=== PATIENT | male | born 1965 | race Caucasian/White ===

== ENCOUNTER → 2020-12-18 | Outpatient (CLI) | payer BC | END | disposition home or self-care (01) | LOC: LABWHC1 16:50 | PROVIDERS: ATTEND Family Medicine | DX: U07.1 COVID-19 (principal) | CPT/HCPCS: 87502; U0003; C9803; U0005 ==

== ENCOUNTER 2020-12-20 09:28 | Emergency (ER) | payer BC ==
--- NOTE | 2020-12-20 09:57 | ED ---
General Adult HPI - General Chief complaint: Recheck/Abnormal Lab/Rx Stated complaint: covid+/sent by PCP Time Seen by Provider: 12/20/20 09:38 Source: patient Mode of arrival: ambulatory Limitations: no limitations - History of Present Illness Initial comments: 55-year-old male with a past medical history of hypertension presents to the emergency room for antibody infusion. Patient tested positive for COVID today at [facility]. Patient has had 9-10 days of symptoms. Patient was sent in by primary care for antibody infusion. Patient states he has had congestion and a cough as well as chills. Patient does not have any chest pain or shortness of breath.Patient has no other complaints at this time including shortness of breath, chest pain, abdominal pain, nausea or vomiting, headache, or visual changes. - Related Data Allergies Allergy/AdvReac Type Severity Reaction Status Date / Time codeine Allergy Rash/Hives Verified 12/20/20 09:33 morphine Allergy Rash/Hives Verified 12/20/20 09:33 Review of Systems ROS Statement: Those systems with pertinent positive or pertinent negative responses have been documented in the HPI. ROS Other: All systems not noted in ROS Statement are negative. Past Medical History Past Medical History: No Reported History History of Any Multi-Drug Resistant Organisms: None Reported Past Surgical History: No Surgical Hx Reported Past Psychological History: No Psychological Hx Reported Smoking Status: Never smoker Past Alcohol Use History: Rare Past Drug Use History: Marijuana General Exam Limitations: no limitations General appearance: alert, in no apparent distress Head exam: Present: atraumatic, normocephalic, normal inspection Eye exam: Present: normal appearance, PERRL, EOMI. Absent: scleral icterus, conjunctival injection, periorbital swelling ENT exam: Present: normal exam, mucous membranes moist Neck exam: Present: normal inspection, full ROM. Absent: tenderness, meningismus, lymphadenopathy Respiratory exam: Present: normal lung sounds bilaterally. Absent: respiratory distress, wheezes, rales, rhonchi, stridor Cardiovascular Exam: Present: regular rate, normal rhythm, normal heart sounds. Absent: systolic murmur, diastolic murmur, rubs, gallop, clicks GI/Abdominal exam: Present: soft, normal bowel sounds. Absent: distended, tenderness, guarding, rebound, rigid Course Vital Signs 12/20/20 09:29 Temperature 97.5 F L Pulse Rate 111 H Respiratory 18 Rate Blood Pressure 151/94 O2 Sat by Pulse 97 Oximetry Medical Decision Making - Medical Decision Making Vitals are stable. Patient initially tachycardic which did improve to 101. Lungs are clear. Vitals are stable. Patient does qualify for antibody infusion as he is within 10 days of symptoms and tested positive outpatient. He also is over 55 and his hypertension. I did discuss the risks of infusion including ALLERGIC reaction. He is agreeable to this. Discussed strict return parameters. Disposition Clinical Impression: COVID-19 Disposition: HOME SELF-CARE Condition: Good Instructions (If sedation given, give patient instructions): Coronavirus Disease 2019 (COVID-19) Additional Instructions: Please follow up with primary care in 1-2 days. Return to the ER for any worsening symptoms. Is patient prescribed a controlled substance at d/c from ED?: No Referrals: Jaret Salomon MD [Primary Care Provider] - 1-2 days Time of Disposition: 10:02
[2020-12-20] MEDS ORDERED: BAMLANIVIMAB (EUA) 700 MG, ETESEVIMAB (EUA) 1,400 MG in SODIUM CHLORIDE 0.9% 50 ML IVPB ONE (10:15)
[2020-12-20 12:46] VITALS: BP 140/90; PULSE 96; RESP 17; TEMP 97.6
== END 2020-12-20 12:03 | disposition home or self-care (01) ==
LOC: EC 09:28
DX: U07.1 COVID-19 (principal); I10 Essential (primary) hypertension; F12.90 Cannabis use, unspecified, uncomplicated
CPT/HCPCS: 96374; 99283

== ENCOUNTER 2020-12-22 10:12 | Inpatient (IN) | payer BC ==
[2020-12-22] MEDS ORDERED: SODIUM CHLORIDE 0.9% 500 ML 500 ML IV STA (10:53)
--- NOTE | 2020-12-22 11:13 | ED ---
Weakness HPI - General Chief complaint: Weakness Stated complaint: numbness,weakness Time Seen by Provider: 12/22/20 10:44 Source: patient, EMS Mode of arrival: EMS - History of Present Illness Initial comments: Patient is a 55-year-old male, with history of hypertension, presenting to the emergency department via EMS with complaints of numbness in all 4 extremities after receiving BAM infusion 2 days ago. Patient states he started having cold like symptoms about 5 days ago, had testing done and tested +2 days ago. He states the symptoms were mild cough, mild shortness of breath, fevers and fatigue. He states every day receiving this infusion he started having a little bit of numbness in his left hand where the IV was but then it progressed to his right hand and arm as well. He did call his PCP who recommended increasing his water intake which he did but states throughout this morning he noticed numbness in all 4 was extremities so he called EMS. He states his fevers have been better but he still feels short of breath. Still having some mild nausea, appetite has been low. He denies any chest pain. He denies history of asthma or COPD, he was a former smoker, stopped 10 years ago. He has no further complaints at this time. He is lightly tachycardia upon arrival at 112, 95% on 2 L, hypertensive at 163/105 but he states he did not take his hypertension medication this morning. - Related Data Home Medications Medication Instructions Recorded Confirmed Metoprolol Tartrate [Lopressor] 25 mg PO BID 12/22/20 12/22/20 lisinopriL [Zestril] 20 mg PO BID 12/22/20 12/22/20 Allergies Allergy/AdvReac Type Severity Reaction Status Date / Time codeine Allergy Rash/Hives Verified 12/22/20 12:18 morphine Allergy Rash/Hives Verified 12/22/20 12:18 Review of Systems ROS Statement: Those systems with pertinent positive or pertinent negative responses have been documented in the HPI. ROS Other: All systems not noted in ROS Statement are negative. Past Medical History Past Medical History: Hypertension History of Any Multi-Drug Resistant Organisms: None Reported Past Surgical History: Hernia Repair Additional Past Surgical History / Comment(s): eye surgery Past Psychological History: No Psychological Hx Reported Smoking Status: Never smoker Past Alcohol Use History: Rare Past Drug Use History: Marijuana General Exam - General Exam Comments Initial Comments: GENERAL: Patient is well-developed and well-nourished. Patient is nontoxic and in no acute distress. HEAD: Atraumatic, normocephalic. EYES: Pupils equal round and reactive to light, extraocular movements intact, sclera anicteric, conjunctiva are normal. Eyelids were unremarkable. ENT: TMs normal, nares patent, oropharynx clear without exudates. Moist mucous membranes. NECK: Normal range of motion, supple without lymphadenopathy or JVD. LUNGS: Unlabored respirations. Breath sounds clear to auscultation bilaterally and equal. No wheezes rales or rhonchi. HEART: Tachycardia rate and rhythm without murmurs, rubs or gallops. ABDOMEN: Soft, nontender, normoactive bowel sounds. No guarding, no rebound. No masses appreciated. : Deferred MUSCULOSKELETAL: Normal extremities with adequate strength and normal range of motion, no pitting or edema. No clubbing or cyanosis. NEUROLOGICAL: Patient is alert and oriented x 3. Motor and sensory are also intact. Cranial nerves II through XII grossly intact. Symmetrical smile. Normal speech, normal gait. PSYCH: Normal mood, normal affect. SKIN: Warm, Dry, normal turgor, no rashes or lesions noted. Course Vital Signs 12/22/20 12/22/20 12/22/20 10:16 10:19 10:43 Temperature 98.8 F 98.8 F Pulse Rate 114 H 114 H 115 H Respiratory 16 16 16 Rate Blood Pressure 161/105 161/105 166/105 O2 Sat by Pulse 97 97 95 Oximetry 12/22/20 12/22/20 12/22/20 11:00 12:00 13:00 Temperature Pulse Rate 112 H 105 H 102 H Respiratory 16 20 14 Rate Blood Pressure 163/105 151/95 165/98 O2 Sat by Pulse 95 97 96 Oximetry EKG Findings - EKG Comments: EKG Findings:: Sinus tach, possible lateral infarct, age undetermined, no signs of acute ischemia today. Ventricular rate 108, MI 136, QT 340. Medical Decision Making - Medical Decision Making Patient is a 55-year-old male with history of hypertension, presenting via EMS with complaints of numbness in all 4 extremities after receiving the BM infusion 2 days ago. He is covid positive. Patient arrived tachycardia at 114, 93% on 2 L. his exam is otherwise unremarkable, no acute neuro deficits, strength is equal and bilateral all 4 extremities, no numbness. Labs show a normal white count, electrolytes are stable, kidney function is normal. CRP is 23, dimer did come back elevated at 13.5. CT angio showed no evidence of acute PE, there are scattered peripheral infiltrates. Patient remains tachycardia in the 100s, remains on 3 L at 96%. Patient will be admitted for Covid pneumonia, hypoxia. Patient accepted by Mikael Ojeda NP. Per Mikael, we will consult Dr. Perez for pulmonology. Patient started on IV Decadron. Patient is in agreement with this plan of care. Case discussed with Dr. Poe. - Lab Data Result diagrams: 12/22/20 11:17 12/22/20 11:17 Lab Results 12/22/20 12/22/20 12/22/20 Range/Units 11:17 11:17 11:17 WBC 7.7 (3.8-10.6) k/uL RBC 4.82 (4.30-5.90) m/uL Hgb 15.2 (13.0-17.5) gm/dL Hct 43.4 (39.0-53.0) % MCV 90.1 (80.0-100.0) fL MCH 31.5 (25.0-35.0) pg MCHC 35.0 (31.0-37.0) g/dL RDW 12.8 (11.5-15.5) % Plt Count 494 H (150-450) k/uL MPV 7.3 Neutrophils % 65 % Lymphocytes % 27 % Monocytes % 4 % Eosinophils % 1 % Basophils % 0 % Neutrophils # 5.0 (1.3-7.7) k/uL Lymphocytes # 2.1 (1.0-4.8) k/uL Monocytes # 0.3 (0-1.0) k/uL Eosinophils # 0.1 (0-0.7) k/uL Basophils # 0.0 (0-0.2) k/uL PT 10.0 (9.0-12.0) sec INR 0.9 (<1.2) APTT 20.9 L (22.0-30.0) sec D-Dimer 13.56 H (<0.60) mg/L FEU Sodium 136 L (137-145) mmol/L Potassium 4.6 (3.5-5.1) mmol/L Chloride 108 H (98-107) mmol/L Carbon Dioxide 21 L (22-30) mmol/L Anion Gap 7 mmol/L BUN 16 (9-20) mg/dL Creatinine 0.85 (0.66-1.25) mg/dL Est GFR (CKD-EPI)AfAm >90 (>60 ml/min/1.73 sqM) Est GFR (CKD-EPI)NonAf >90 (>60 ml/min/1.73 sqM) Glucose 123 H (74-99) mg/dL Plasma Lactic Acid Kevin (0.7-2.0) mmol/L Calcium 9.0 (8.4-10.2) mg/dL Magnesium 2.2 (1.6-2.3) mg/dL Total Bilirubin 0.6 (0.2-1.3) mg/dL AST 26 (17-59) U/L ALT 27 (4-49) U/L Alkaline Phosphatase 102 (38-126) U/L Lactate Dehydrogenase 573 (313-618) U/L C-Reactive Protein 23.6 H (<10.0) mg/L Total Protein 6.9 (6.3-8.2) g/dL Albumin 3.8 (3.5-5.0) g/dL 12/22/20 Range/Units 11:17 WBC (3.8-10.6) k/uL RBC (4.30-5.90) m/uL Hgb (13.0-17.5) gm/dL Hct (39.0-53.0) % MCV (80.0-100.0) fL MCH (25.0-35.0) pg MCHC (31.0-37.0) g/dL RDW (11.5-15.5) % Plt Count (150-450) k/uL MPV Neutrophils % % Lymphocytes % % Monocytes % % Eosinophils % % Basophils % % Neutrophils # (1.3-7.7) k/uL Lymphocytes # (1.0-4.8) k/uL Monocytes # (0-1.0) k/uL Eosinophils # (0-0.7) k/uL Basophils # (0-0.2) k/uL PT (9.0-12.0) sec INR (<1.2) APTT (22.0-30.0) sec D-Dimer (<0.60) mg/L FEU Sodium (137-145) mmol/L Potassium (3.5-5.1) mmol/L Chloride (98-107) mmol/L Carbon Dioxide (22-30) mmol/L Anion Gap mmol/L BUN (9-20) mg/dL Creatinine (0.66-1.25) mg/dL Est GFR (CKD-EPI)AfAm (>60 ml/min/1.73 sqM) Est GFR (CKD-EPI)NonAf (>60 ml/min/1.73 sqM) Glucose (74-99) mg/dL Plasma Lactic Acid Kevin 1.6 (0.7-2.0) mmol/L Calcium (8.4-10.2) mg/dL Magnesium (1.6-2.3) mg/dL Total Bilirubin (0.2-1.3) mg/dL AST (17-59) U/L ALT (4-49) U/L Alkaline Phosphatase (38-126) U/L Lactate Dehydrogenase (313-618) U/L C-Reactive Protein (<10.0) mg/L Total Protein (6.3-8.2) g/dL Albumin (3.5-5.0) g/dL Disposition Clinical Impression: Pneumonia due to COVID-19 virus, Hypoxia Disposition: ADMITTED IP TO THIS [facility] Condition: Stable Referrals: Jaret Salomon MD [Primary Care Provider] - 1-2 days Decision Date: 12/22/20 Decision Time: 14:19
--- NOTE | 2020-12-22 11:24 | XR ---
EXAMINATION TYPE: XR chest 1V portable DATE OF EXAM: 12/22/2020 COMPARISON: None INDICATION: Weakness short of breath fever TECHNIQUE: Single frontal view of the chest is obtained. FINDINGS: The heart size is normal. The pulmonary vasculature is normal. There is a subtle infiltrate in the right upper lobe. Mild infiltrate may be at the left base. Findin gs are nonspecific. Atelectasis and pneumonia could be considered. Consider atypical pneumonia. IMPRESSION: 1. Scattered bilateral lung infiltrates are nonspecific. Atypical pneumonia, pneumonia, and atelectas is would be within the differential.
[2020-12-22 11:44] LABS: Basophils % (A) 0 %; Eosinophils # (A) 0.1 k/uL (0-0.7); Eosinophils % (A) 1 %; HCT 43.4 % (39.0-53.0); HGB 15.2 gm/dL (13.0-17.5); Lymphocytes # (A) 2.1 k/uL (1.0-4.8); Lymphocytes % (A) 27 %; MCH 31.5 pg (25.0-35.0); MCV 90.1 fL (80.0-100.0); Mean Platelet Volume 7.3; Monocytes # (A) 0.3 k/uL (0-1.0); Monocytes % (A) 4 %; Neutrophils % (A) 65 %; Platelet Count 494 k/uL (150-450); RBC 4.82 m/uL (4.30-5.90); RDW 12.8 % (11.5-15.5); WBC 7.7 k/uL (3.8-10.6)
[2020-12-22 12:04] LABS: ALT 27 U/L (4-49); AST 26 U/L (17-59); African American GFR (CKD) >90 (>60 ml/min/1.73 sqM); Albumin 3.8 g/dL (3.5-5.0); Alkaline Phosphatase 102 U/L (38-126); Anion Gap 7 mmol/L; Blood Urea Nitrogen 16 mg/dL (9-20); C Reactive Protein 23.6 mg/L (<10.0); Carbon Dioxide 21 mmol/L (22-30); Chloride 108 mmol/L (98-107); Glucose 123 mg/dL (74-99); LDH 573 U/L (313-618); Magnesium 2.2 mg/dL (1.6-2.3); Non-African American GFR(CKD) >90 (>60 ml/min/1.73 sqM); Potassium 4.6 mmol/L (3.5-5.1); Sodium 136 mmol/L (137-145); Total Bilirubin 0.6 mg/dL (0.2-1.3); Total Protein 6.9 g/dL (6.3-8.2)
[2020-12-22 12:45] LABS: INR 0.9 (<1.2)
[2020-12-22 12:47] LABS: D-Dimer 13.56 mg/L FEU (<0.60); Partial Thromboplastin Time 20.9 sec (22.0-30.0)
--- NOTE | 2020-12-22 13:45 | CT ---
CT CHEST FOR PULMONARY EMBOLISM. EXAMINATION TYPE: CT chest angio for PE DATE OF EXAM: 12/22/2020 INDICATION: Elevated dimer, positive covid, dyspnea, weakness CT DLP: 517.8 mGycm, Automated exposure control for dose reduction was used. CONTRAST: Patient injected with 100 mL of Isovue 370. COMPARISON: Chest x-ray 12/22/2020 TECHNIQUE: CT of the chest is performed on a spiral scan at 2 mm thick sections. Study is performed with intravenous contrast timed for evaluation for pulmonary embolism. This will limit additional po rtions of the evaluation. 3-D MIP images reconstructed by the technologist are reviewed on the compu ter in the coronal and sagittal planes. FINDINGS: No persistent filling defects are evident to suggest an acute pulmonary embolism. No mediastinal or hilar adenopathy enlarged by CT criteria is evident. The ascending aorta diameter at the level of the main pulmonary artery is 4.2 cm. The main pulmonary artery diameter at the bifur cation is 2.7 cm. There is a small area of pneumonitis in the periphery of the left upper lung field, series 406 image 42. Scattered areas of pneumonitis and groundglass opacities through the right mid and upper lung fie ld some peripheral infiltrates in the lateral left midlung and posterior right mid lung. A 0.5 cm nodule may be in the posterior left lung. Series 406 image 81. Some emphysematous blebs are evident in the upper lung thompson Limited CT section through the upper abdomen are unremarkable. IMPRESSIONS: 1. No acute pulmonary embolism. 2. Scattered peripheral infiltrates are nonspecific but can be compatible with atypical pneumonia.
[2020-12-22] MEDS ORDERED: ACETAMINOPHEN TAB 325 MG TAB PO PRN (14:15)
[2020-12-22] MEDS ORDERED: IBUPROFEN 400 MG TAB PO PRN (14:15)
[2020-12-22] MEDS ORDERED: NALOXONE 0.4 MG/ML 1 ML VIAL IV PRN (14:15)
[2020-12-22] MEDS ORDERED: ONDANSETRON 4 MG/2 ML VIAL IVP PRN (14:15)
[2020-12-22] MEDS: DEXAMETHASONE SOD PHOSPHATE 10 MG/ML 1 ML VIAL IV SCH (14:57)
[2020-12-22] MEDS: CHOLECALCIFEROL 25 MCG (1000 IU) TABLET PO SCH (16:27)
[2020-12-22] MEDS: ASCORBIC ACID 500 MG TAB PO SCH (16:27)
[2020-12-22] MEDS: ZINC SULFATE 220 MG CAP PO SCH (16:34)
[2020-12-22] MEDS ORDERED: REMDESIVIR 200 MG in SODIUM CHLORIDE 0.9% 250 ML IVPB ONE (17:00)
[2020-12-22] MEDS: ENOXAPARIN 100 MG/ML SYRINGE SQ SCH ×2 (17:38→23:00)
[2020-12-22 17:44] LABS: INR 0.9 (<1.2); Partial Thromboplastin Time 20.4 sec (22.0-30.0); Prothrombin Time 10.1 sec (9.0-12.0)
--- NOTE | 2020-12-22 17:56 | P.CNPUL ---
History of Present Illness Consult date: 12/22/20 Reason for consult: dyspnea, cough, COPD Chief complaint: Numbness in the hands and feet along with shortness of breath History of present illness: This is a 55-year-old male with history of smoking 3 packs per day lately has however has been not smoking, patient came into the hospital due to numbness in all 4 extremity, patient was diagnosed as the cord 19 pneumonia about a week ago with symptoms onset, has been more short of breath lately, patient did present in the ER previously for monoclonal IV antibody therapy after that he started having numbness in his feet and arms came into the hospital for further eval uation and intervention and treatment Review of Systems All systems: negative Past Medical History Past Medical History: Hypertension History of Any Multi-Drug Resistant Organisms: None Reported Past Surgical History: Hernia Repair Additional Past Surgical History / Comment(s): eye surgery Past Psychological History: No Psychological Hx Reported Smoking Status: Never smoker Past Alcohol Use History: Rare Past Drug Use History: Marijuana Medications and Allergies Home Medications Medication Instructions Recorded Confirmed Type Metoprolol Tartrate [Lopressor] 25 mg PO BID 12/22/20 12/22/20 History lisinopriL [Zestril] 20 mg PO BID 12/22/20 12/22/20 History Allergies Allergy/AdvReac Type Severity Reaction Status Date / Time codeine Allergy Rash/Hives Verified 12/22/20 12:18 morphine Allergy Rash/Hives Verified 12/22/20 12:18 Physical Exam Vitals: Vital Signs Temp Pulse Resp BP Pulse Ox 12/22/20 17:00 98 20 158/94 97 12/22/20 16:00 114 H 20 156/95 97 12/22/20 15:00 98 16 153/95 97 12/22/20 14:00 97.9 F 109 H 20 157/92 97 12/22/20 13:00 102 H 14 165/98 96 12/22/20 12:00 105 H 20 151/95 97 12/22/20 11:00 112 H 16 163/105 95 12/22/20 10:43 115 H 16 166/105 95 12/22/20 10:19 98.8 F 114 H 16 161/105 97 12/22/20 10:16 98.8 F 114 H 16 161/105 97 Intake and Output 12/22/20 12/22/20 12/22/20 06:59 14:59 22:59 Other: Weight 102.965 kg - Constitutional General appearance: disheveled, mild distress - EENT Eyes: PERRLA Ears: bilateral: normal - Neck Carotids: bilateral: upstroke normal - Respiratory Respiratory: bilateral: CTA - Cardiovascular Rhythm: regular Heart sounds: normal: S1, S2 - Gastrointestinal General gastrointestinal: normal bowel sounds, soft - Neurologic Neurologic: CNII-XII intact - Musculoskeletal Musculoskeletal: gait normal, generalized weakness, strength equal bilaterally - Psychiatric Psychiatric: A&O x's 3, appropriate affect, intact judgment & insight Results - Laboratory Findings CBC and BMP: 12/22/20 11:17 12/22/20 11:17 PT/INR, D-dimer PT 10.0 sec (9.0-12.0) 12/22/20 11:17 INR 0.9 (<1.2) 12/22/20 11:17 D-Dimer 13.56 mg/L FEU (<0.60) H 12/22/20 11:17 Abnormal lab findings: Abnormal Labs 12/22/20 12/22/20 12/22/20 11:17 11:17 11:17 Plt Count 494 H APTT 20.9 L D-Dimer 13.56 H Sodium 136 L Chloride 108 H Carbon Dioxide 21 L Glucose 123 H Creatine Kinase C-Reactive Protein 23.6 H 12/22/20 16:42 Plt Count APTT D-Dimer Sodium Chloride Carbon Dioxide Glucose Creatine Kinase 39 L C-Reactive Protein - Diagnostic Findings Chest x-ray: report reviewed, image reviewed (Bilateral infiltrate,) CT scan - chest: report reviewed, image reviewed (No acute pulmonary embolism seen bilateral scattered infiltrates consistent with covid 19 pneumonia) Assessment and Plan Assessment: Acute coronary pneumonia Acute hypoxic respiratory failure Bilateral symmetrical numbness of the extremities Hypertension hypertensive cardiovascular disease Likely baseline COPD Plan: IV REM desivir Supplemental oxygen Deep breathing sense incentive spirometry IV Decadron Anticoagulation with Lovenox Recommend neurology evaluation for neuropathy appears to be associated with cold with 19 pneumonia versus monoclonal antibody therapy Further plan of care and recommendation as per clinical response of the patient Time with Patient: Greater than 30
[2020-12-22] MEDS ORDERED: DEXTROSE 5%-0.9% NACL 1,000 ML IV SCH (18:00)
--- NOTE | 2020-12-22 18:23 | P.HPIM ---
History of Present Illness H&P Date: 12/22/20 Chief Complaint: Covid 19 pneumonia 55-year-old male presented to the emergency room with the complaint of numbness and bilateral upper extremities. Patient recently received BAM infusion 2 days ago for Covid 19 infection. Patient has significant medical history of hypertension. Patient states his symptoms began about 5 days agowithin the last 24 hours patient noticed numbness to upper extremities and significant amount of fatigue and mild exertional shortness of breath. Diagnostic testing and imaging results reveal covid- 19 infection. To be started on high-dose Lovenox and IV Decadron, and REMDESIVIR. Patient requiring 2 L of oxygen to keep oxygen saturation above 94%. Pulmonary critical care consulted for recommendations and treatment plan Review of Systems Constitutional: Reports fatigue, Reports fever, Reports malaise, Reports weakness Ears, nose, mouth and throat: Reports sore throat Cardiovascular: Reports dyspnea on exertion, Reports lightheadedness Musculoskeletal: Reports muscle weakness Neurological: Reports numbness, Reports tingling Endocrine: Reports fatigue Past Medical History Past Medical History: Hypertension History of Any Multi-Drug Resistant Organisms: None Reported Past Surgical History: Hernia Repair Additional Past Surgical History / Comment(s): eye surgery Past Psychological History: No Psychological Hx Reported Smoking Status: Never smoker Past Alcohol Use History: Rare Past Drug Use History: Marijuana Medications and Allergies Home Medications and Allergies Comment(s): Medications and ALLERGIES reviewed Home Medications Medication Instructions Recorded Confirmed Type Metoprolol Tartrate [Lopressor] 25 mg PO BID 12/22/20 12/22/20 History lisinopriL [Zestril] 20 mg PO BID 12/22/20 12/22/20 History Allergies Allergy/AdvReac Type Severity Reaction Status Date / Time codeine Allergy Rash/Hives Verified 12/22/20 18:05 morphine Allergy Rash/Hives Verified 12/22/20 18:05 Physical Exam Vitals: Vital Signs Temp Pulse Resp BP Pulse Ox 12/22/20 17:54 98.9 F 12/22/20 17:00 98 20 158/94 97 12/22/20 16:00 114 H 20 156/95 97 12/22/20 15:00 98 16 153/95 97 12/22/20 14:00 97.9 F 109 H 20 157/92 97 12/22/20 13:00 102 H 14 165/98 96 12/22/20 12:00 105 H 20 151/95 97 12/22/20 11:00 112 H 16 163/105 95 12/22/20 10:43 115 H 16 166/105 95 12/22/20 10:19 98.8 F 114 H 16 161/105 97 12/22/20 10:16 98.8 F 114 H 16 161/105 97 Intake and Output 12/22/20 12/22/20 12/22/20 06:59 14:59 22:59 Other: Weight 102.965 kg - Constitutional General appearance: mild distress - EENT Eyes: EOMI, PERRLA Ears: bilateral: normal - Neck Neck: normal ROM Carotids: bilateral: upstroke normal - Respiratory Respiratory: bilateral: diminished (Anterior and posterior lung thompson) - Cardiovascular Sinus tachycardia Heart rate: 108 Rhythm: regular Heart sounds: normal: S1, S2 radial pulse Peripheral Pulses: bilateral: Normal dorsalis pedis Peripheral Pulses: bilateral: Normal - Gastrointestinal General gastrointestinal: normal bowel sounds - Integumentary Integumentary: decreased turgor - Neurologic Neurologic: CNII-XII intact - Musculoskeletal Musculoskeletal: generalized weakness - Psychiatric Psychiatric: A&O x's 3, appropriate affect, intact judgment & insight Results CBC & Chem 7: 12/22/20 11:17 12/22/20 11:17 Labs: Abnormal Lab Results - Last 24 Hours (Table) 12/22/20 12/22/20 12/22/20 Range/Units 11:17 11:17 11:17 Plt Count 494 H (150-450) k/uL APTT 20.9 L (22.0-30.0) sec Fibrinogen (200-500) mg/dL D-Dimer 13.56 H (<0.60) mg/L FEU Sodium 136 L (137-145) mmol/L Chloride 108 H (98-107) mmol/L Carbon Dioxide 21 L (22-30) mmol/L Glucose 123 H (74-99) mg/dL Creatine Kinase (55-170) U/L C-Reactive Protein 23.6 H (<10.0) mg/L 12/22/20 12/22/20 Range/Units 16:42 16:42 Plt Count (150-450) k/uL APTT 20.4 L (22.0-30.0) sec Fibrinogen 560 H (200-500) mg/dL D-Dimer (<0.60) mg/L FEU Sodium (137-145) mmol/L Chloride (98-107) mmol/L Carbon Dioxide (22-30) mmol/L Glucose (74-99) mg/dL Creatine Kinase 39 L (55-170) U/L C-Reactive Protein (<10.0) mg/L Chest x-ray: report reviewed CT scan - chest: report reviewed Thrombosis Risk Factor Assmnt - Choose All That Apply Each Factor Represents 1 point: Age 41-60 years, Obesity (BMI >25) Thrombosis Risk Factor Assessment Total Risk Factor Score: 2 Thrombosis Risk Factor Assessment Level: Low Risk Assessment and Plan Assessment: Acute covid-19 pneumonia Acute hypoxic respiratory failure Bilateral symmetrical numbness of upper extremities Hypertension Cardiovascular disease Possible COPDformer smoker Current illicit drug use of marijuana Full code Plan: Covid 19 [id number] Lovenox and IV Decadron, and REMDESIVIR- consultation with pulmonary critical care for recommendations and treatment plan Hypertension continue home medications Acute hypoxic rest or failuresupplemental oxygen to keep saturations greater than 94 present Continue home medications Further recommendations to come based on patient's clinical condition Time with Patient: Greater than 30
[2020-12-22] MEDS: lisinopriL 20 MG TAB PO SCH (21:13)
[2020-12-22] MEDS: METOPROLOL TARTRATE 25 MG TAB PO SCH (21:13)
[2020-12-23] MEDS: ZINC SULFATE 220 MG CAP PO SCH (08:12)
[2020-12-23] MEDS: lisinopriL 20 MG TAB PO SCH ×2 (08:13→20:25)
[2020-12-23] MEDS: METOPROLOL TARTRATE 25 MG TAB PO SCH ×2 (08:13→20:25)
[2020-12-23] MEDS: CHOLECALCIFEROL 25 MCG (1000 IU) TABLET PO SCH (08:13)
[2020-12-23] MEDS: ASCORBIC ACID 500 MG TAB PO SCH (08:13)
[2020-12-23] MEDS: DEXAMETHASONE SOD PHOSPHATE 10 MG/ML 1 ML VIAL IV SCH (08:13)
[2020-12-23 09:17] LABS: D-Dimer 6.64 mg/L FEU (<0.60); Partial Thromboplastin Time 23.7 sec (22.0-30.0); Prothrombin Time 10.5 sec (9.0-12.0)
[2020-12-23 09:44] LABS: Ferritin 365.7 ng/mL (22.0-322.0)
[2020-12-23] MEDS: ENOXAPARIN 100 MG/ML SYRINGE SQ SCH (11:18)
[2020-12-23 11:49] LABS: Basophils # (A) 0.02 X 10*3/uL (0.00-0.10); Basophils % (A) 0.2 %; Eosinophils # (A) 0.01 X 10*3/uL (0.04-0.35); Eosinophils % (A) 0.1 %; HCT 43.8 % (39.6-50.0); HGB 14.4 g/dL (13.0-17.0); Lymphocytes # (A) 2.62 X 10*3/uL (0.90-5.00); Lymphocytes % (A) 27.7 %; MCHC 32.9 g/dL (32.0-37.0); MCV 91.3 fL (80.0-97.0); Mean Platelet Volume 9.7 fL (9.5-12.2); Monocytes # (A) 0.48 X 10*3/uL (0.20-1.00); Monocytes % (A) 5.1 %; Neutrophils # (A) 6.29 X 10*3/uL (1.80-7.70); Neutrophils % (A) 66.5 %; Platelet Count 531 X 10*3/uL (140-440); WBC 9.46 X 10*3/uL (4.50-10.00)
[2020-12-23 12:02] LABS: African American GFR (CKD) 114.9 (60.0-200.0); Albumin 4.4 g/dL (3.80-4.90); Anion Gap 8.7 mmol/L (4.00-12.00); BUN/Creat Ratio 18.75 Ratio (12.00-20.00); C Reactive Protein 1.4 mg/dL (0.0-0.8); Calcium 9.2 mg/dL (8.7-10.3); Carbon Dioxide 22.3 mmol/L (21.6-31.8); Globulin 2.2 g/dL (1.6-3.3); Magnesium 2.2 mg/dL (1.5-2.4); Non-African American GFR(CKD) 99.2 (60.0-200.0); Potassium 4.5 mmol/L (3.5-5.5); Total Bilirubin 0.5 mg/dL (0.3-1.2); Total Protein 6.6 g/dL (6.2-8.2)
[2020-12-23 12:11] LABS: Ferritin 371.3 ng/mL (22.0-322.0)
[2020-12-23 15:36] LABS: Potassium 4.5 mmol/L (3.5-5.1)
[2020-12-23 15:37] LABS: ALT 33 U/L (4-49); AST 32 U/L (17-59); African American GFR (CKD) >90 (>60 ml/min/1.73 sqM); Albumin 3.9 g/dL (3.5-5.0); Albumin/Globulin Ratio 1.3; Alkaline Phosphatase 100 U/L (38-126); Anion Gap 7 mmol/L; Blood Urea Nitrogen 18 mg/dL (9-20); Calcium 9.4 mg/dL (8.4-10.2); Carbon Dioxide 23 mmol/L (22-30); Chloride 107 mmol/L (98-107); Globulin 3.1 g/dL; Glucose 153 mg/dL (74-99); Non-African American GFR(CKD) >90 (>60 ml/min/1.73 sqM); Sodium 137 mmol/L (137-145); Total Bilirubin 0.5 mg/dL (0.2-1.3)
--- NOTE | 2020-12-23 15:42 | CT ---
EXAM: CT brain wo con CLINICAL HISTORY: Acute stroke. COMPARISON: None TECHNIQUE: Contiguous axial noncontrast images of the brain were obtained. Coronal and sagittal refor mats were generated and reviewed. Automated dose control was used for this exam. FINDINGS: There is no evidence for intracranial hemorrhage, mass effect or midline shift. The white matter is g rossly preserved. Ventricular size and configuration is within normal limits for degree of parenchymal volume. The paranasal sinuses are clear. The mastoid air cells are clear. No evidence for calvarial fracture. IMPRESSION: No acute intracranial abnormality.
--- NOTE | 2020-12-23 15:51 | P.PN ---
Subjective Progress Note Date: 12/23/20 Principal diagnosis: Acute covid 19 pneumonia Acute hypoxic respiratory failure symmetric neuropathy Bilateral symmetrical numbness of the extremities Hypertension hypertensive cardiovascular disease Likely baseline COPD 12/23/2020, patient seen eval examined during the rounds labs reviewed medications reviewed care plan discussed, shortness of breath still there intermittent cough is present neurology is evaluating this patient suspecting Guillain-Mendez syndrome patients to get a spinal tap, however will caution attempt due to being on Lovenox need to stop 12 hour before, patient received a dose of IV REMdesivir 200 mg yesterday we'll continue it 100 mg IV for 4 more days This is a 55-year-old male with history of smoking 3 packs per day lately has however has been not smoking, patient came into the hospital due to numbness in all 4 extremity, patient was diagnosed as the cord 19 pneumonia about a week ago with symptoms onset, has been more short of breath lately, patient did present in the ER previously for monoclonal IV antibody therapy after that he started having numbness in his feet and arms came into the hospital for further evaluation and intervention and treatment Objective - Vital Signs Vital signs: Vital Signs Temp 97.6 F 12/23/20 14:00 Pulse 120 H 12/23/20 14:00 Resp 22 12/23/20 14:00 BP 178/92 12/23/20 14:00 Pulse Ox 94 L 12/23/20 14:00 Intake & Output 12/22/20 12/23/20 12/23/20 18:59 06:59 18:59 Intake Total 260 Output Total 800 Balance -800 260 Weight 102.965 kg Intake: Oral 260 Output: Urine 800 Other: # Voids 4 - Exam - Constitutional General appearance: disheveled, mild distress - EENT Eyes: PERRLA Ears: bilateral: normal - Neck Carotids: bilateral: upstroke normal - Respiratory Respiratory: bilateral: CTA - Cardiovascular Rhythm: regular Heart sounds: normal: S1, S2 - Gastrointestinal General gastrointestinal: normal bowel sounds, soft - Neurologic Neurologic: CNII-XII intact - Musculoskeletal Musculoskeletal: gait normal, generalized weakness, strength equal bilaterally - Psychiatric Psychiatric: A&O x's 3, appropriate affect, intact judgment & insight - Labs CBC & Chem 7: 12/23/20 08:00 12/23/20 15:02 Labs: Abnormal Lab Results - Last 24 Hours (Table) 12/22/20 12/22/20 12/23/20 Range/Units 16:42 16:42 08:00 Plt Count 531 H (140-440) X 10*3/uL Eosinophils # 0.01 L (0.04-0.35) X 10*3/uL APTT 20.4 L (22.0-30.0) sec Fibrinogen 560 H (200-500) mg/dL D-Dimer (<0.60) mg/L FEU Glucose (70-110) mg/dL Ferritin 365.7 H (22.0-322.0) ng/mL Creatine Kinase 39 L (55-170) U/L C-Reactive Protein (0.0-0.8) mg/dL 12/23/20 12/23/20 12/23/20 Range/Units 08:00 08:00 15:02 Plt Count (140-440) X 10*3/uL Eosinophils # (0.04-0.35) X 10*3/uL APTT (22.0-30.0) sec Fibrinogen 507 H (200-500) mg/dL D-Dimer 6.64 H (<0.60) mg/L FEU Glucose 128 H 153 H (70-110) mg/dL Ferritin 371.3 H (22.0-322.0) ng/mL Creatine Kinase (55-170) U/L C-Reactive Protein 1.4 H (0.0-0.8) mg/dL Microbiology - Last 24 Hours (Table) 12/22/20 11:17 Blood Culture - Preliminary Blood No Growth after 24 hours 12/22/20 11:17 Blood Culture - Preliminary Blood No Growth after 24 hours Assessment and Plan Assessment: Acute cvid 19 pneumonia Acute hypoxic respiratory failure acute peripheral neuropathy Bilateral symmetrical numbness of the extremities Hypertension hypertensive cardiovascular disease Likely baseline COPD Plan: IV REM desivir Supplemental oxygen Deep breathing sense incentive spirometry IV Decadron Anticoagulation with Lovenox neurology evaluation in progress for neuropathy appears to be associated with cold with 19 pneumonia versus monoclonal antibody therapy suspect AIDP Further plan of care and recommendation as per clinical response of the patient Time with Patient: Greater than 30
--- NOTE | 2020-12-23 16:23 | PN ---
PROGRESS NOTE DATE OF SERVICE: 12/23/2020. HISTORY OF PRESENT ILLNESS: This 55-year-old gentleman who was admitted with acute COVID-19 pneumonia also was symptomatic since about December 10. The patient subsequently had Covid test done on December 18 as an outpatient which is positive. On December 20, Friday, the patient came to the ER around 10 o'clock and patient had infusion of BAM and combination fusion finished at 12 o'clock. The patient went home. Patient is slightly numb in the left hand before he left and subsequently within a few hours the patient developed numbness of the hand which was rapidly progressive and the patient came to [facility] yesterday on the and was admitted. The patient came to [facility] on 12/22 and the patient admitted for evaluation and treatment. There is no history of fever, rigors. No headache, loss of consciousness, seizures. The inflammatory markers of Covid 19 are elevated at this time. Neurology and Infectious Disease evaluation in progress. PAST MEDICAL HISTORY: Reviewed. REVIEW OF SYSTEMS: CARDIOVASCULAR SYSTEM: No angina. RESPIRATION: As mentioned earlier. GI: As mentioned earlier. : No dysuria. NERVOUS SYSTEM: As mentioned. CURRENT MEDICATIONS: Reviewed and include: Tylenol, vitamin C, vitamin D3, Decadron, and Lovenox, Motrin, Zestril, doses reviewed. PHYSICAL EXAMINATION: Alert and oriented times three. Pulse 120 and regular. Blood pressure 178/90, respiration 22, temperature 97.2, pulse ox 94% on 3 L. HEENT: Conjunctivae normal. NECK: No JVD. CARDIOVASCULAR: S1, S2. RESPIRATION: Breath sounds diminished in the bases. Scattered rhonchi and crackles. ABDOMEN: Soft, nontender. LEGS are no edema. No swelling. NERVOUS SYSTEM: Diffusely weak, significant weakness grade 3/4 in the proximal muscles and grade 4 in the distal muscles. Sensory abnormality about 60% in the upper limbs and in the lower limbs. The trunk is normal. Otherwise, the tongue sensations are normal. Reflexes are diminished. Gait is ataxic. LYMPHATICS: No lymph nodes palpable in the neck, axillae or groin. JOINTS: No active deforming arthropathy. LABS: At this time shows: WBC 9.4 and hemoglobin 14.4, and INR is 1. D-dimer 6.64. C- reactive protein is 1.4. ASSESSMENT: 1. Acute COVID-19 infection, with bilateral Covid 19 pneumonia, right more the left interstitial pneumonia. 2. Significant weakness and numbness, possibly demyelinating polyneuropathy or Guillain Adkins syndrome possibly secondary to Covid or BAM. 3. Hypertension. 4. History of THC. 5. Elevated platelet counts. 6. Elevated D-dimer without evidence of pulmonary embolism. 7. Hyponatremia. 8. Elevated random glucose. 9. Elevated ferritin. 10.Elevated CRP. 11.FULL CODE. 12.Obesity with body mass of 31.7. RECOMMENDATIONS AND DISCUSSION: This 55-year-old gentleman who presented with multiple complex medical issues, we will monitor the patient closely. Continue the current medications, management and symptomatic treatment. Continue with Lovenox. Continue the vitamin supplements. Otherwise, I would recommend a neurology evaluation and Infectious Disease evaluation. Neurology has seen the patient. Discussed with Neurology, Dr. Hawk. Recommended lumbar puncture and possible IVIG infusion. Prognosis extremely guarded and I would also recommend a 2D echo with Doppler and we will monitor the patient. Neuro checks. Transfer to telemetry. There are no beds available in any of the tertiary care centers. Prognosis extremely guarded because of multiple complex medical issues. Further recommendations to follow. MMODL / IJN: [id number] / SILVIA
[2020-12-23] MEDS: REMDESIVIR 100 MG in SODIUM CHLORIDE 0.9% 250 ML IVPB SCH (17:42)
--- NOTE | 2020-12-23 17:49 | P.CNNES ---
History of Present Illness Consult date: 12/23/20 History of Present Illness: The patient is a pleasant 55-year-old right-handed male who is seen in neurologic consultation on December 23, 2020, via teleneurology. The patient reports that he was diagnosed with Covid 19 on Sunday, December 20, 2020. The same day, he received an infusion of Bamlanivimab,a monoclonal antibody used to treat early, non-hospitalized, covid positive pts. The patient reports that on the day of the infusion, he began to experience numbness in his left hand. This was the hand in which the IV was placed. Patient reports that the numbness then began to involve his right hand. Patient also reports experiencing soreness in his knees, which she feels was associated with the infusion. At the next day apparently the patient felt severe weakness in his legs. He says he "went to the floor". His legs were weak and numb. Patient reports that the numbness in his legs is from his feet to his hips. Patient denies difficulty with urination. He does reports that he has not had a bowel movement since he has been admitted to the hospital. The patient denies headache. He does report loss of taste sensation. He does not have a loss of smell. Patient does feel as if his right side is slightly worse than the left. Regarding his upper extremities, the patient feels as if his numbness is from his hands to his elbows. The patient denies changes in vision. There is no difficulty with swallowing. No excessive difficulty breathing. The patient does have a cough, associated with his pneumonia. Past Medical History Past Medical History: Hypertension History of Any Multi-Drug Resistant Organisms: None Reported Past Surgical History: Hernia Repair Additional Past Surgical History / Comment(s): eye surgery Past Psychological History: No Psychological Hx Reported Smoking Status: Never smoker Past Alcohol Use History: Rare Past Drug Use History: Marijuana - Past Family History Mother Family Medical History: Cancer, COPD Father Family Medical History: Myocardial Infarction (MD) Medications and Allergies Home Medications Medication Instructions Recorded Confirmed Type Metoprolol Tartrate [Lopressor] 25 mg PO BID 12/22/20 12/22/20 History lisinopriL [Zestril] 20 mg PO BID 12/22/20 12/22/20 History Allergies Allergy/AdvReac Type Severity Reaction Status Date / Time codeine Allergy Rash/Hives Verified 12/22/20 18:05 morphine Allergy Rash/Hives Verified 12/22/20 18:05 Physical Examination - Vital Signs Vital Signs: Vital Signs Temp Pulse Pulse Resp BP BP Pulse Ox 12/23/20 10:30 97.5 F L 87 18 177/91 97 12/23/20 08:02 99 20 147/77 95 12/23/20 05:35 98.0 F 96 19 176/91 96 12/23/20 01:58 97.8 F 92 20 177/93 97 12/22/20 21:58 97.7 F 88 145/87 97 12/22/20 20:00 88 20 12/22/20 17:54 98.9 F 12/22/20 17:00 98 20 158/94 97 12/22/20 16:00 114 H 20 156/95 97 12/22/20 15:00 98 16 153/95 97 Intake and Output 12/22/20 12/23/20 12/23/20 22:59 06:59 14:59 Intake Total 260 Output Total 400 400 Balance -400 -400 260 Intake: Oral 260 Output: Urine 400 400 Other: # Voids 4 Weight 102.965 kg Gen.: The patient is reclining in the bed. He is well-nourished, well-developed and in no acute distress. He is wearing oxygen via nasal cannula. HEENT: Head is atraumatic, normocephalic. Fundus not visualized. There is no scleral icterus. Mucous membranes are moist. Neck: Supple, without carotid bruits. Neck strength is 5/5. Heart: Regular rate and rhythm Trunk: There is decrease in core strength, the patient has difficulty changing positions in the bed. Extremities: Without edema Neurological examination Mental status: The patient is awake, alert and oriented 3. His speech is clear. There is no dysarthria or aphasia. Cranial nerves: Pupils are equal, round and reactive to light. Visual thompson are full to confrontation. Extraocular movements are intact. There is no nys tagmus. Facial sensation is intact. There is no facial asymmetry. Hearing is grossly intact. Uvula and palate are midline. Shoulder shrug is symmetric. Tongue protrudes midline. 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 Biceps strength 4/5. Deltoids and triceps 3/5. Intrinsic hand muscles 1/5. Right hip flexor 2-3/5. Left hip flexor 3/5. Right quadriceps 2-3/5. Left quadriceps 3-/5. Bilateral hip Adductors and abductors 4/5. Left ankle plantar flexor 3+/5. Right plantar flexor 3/5. Bi lateral ankle dorsiflexors 2/5. Sensation: There is dysesthesia to light touch of the lower extremities. There is decreased pinprick distally in the bilateral lower extremities. Deep tendon reflexes: Absent throughout. Plantar responses are mute Coordination: Finger to nose and [id number] testing are intact Results - Laboratory Findings CBC and BMP: 12/23/20 08:00 12/23/20 15:02 Abnormal Lab Findings: Abnormal Labs 12/22/20 12/22/20 12/22/20 11:17 11:17 11:17 Plt Count 494 H Eosinophils # APTT 20.9 L Fibrinogen D-Dimer 13.56 H Sodium 136 L Chloride 108 H Carbon Dioxide 21 L Glucose 123 H Ferritin Creatine Kinase C-Reactive Protein 23.6 H 12/22/20 12/22/20 12/23/20 16:42 16:42 08:00 Plt Count 531 H Eosinophils # 0.01 L APTT 20.4 L Fibrinogen 560 H D-Dimer Sodium Chloride Carbon Dioxide Glucose Ferritin 365.7 H Creatine Kinase 39 L C-Reactive Protein 12/23/20 12/23/20 08:00 08:00 Plt Count Eosinophils # APTT Fibrinogen 507 H D-Dimer 6.64 H Sodium Chloride Carbon Dioxide Glucose 128 H Ferritin 371.3 H Creatine Kinase C-Reactive Protein 1.4 H Assessment and Plan Assessment: 1. 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 Stat lumbar puncture: check protein, glucose, cell count, Gram stain, culture 2. Following lumbar puncture will begin IV IgG daily 5 days 3. Physical therapy consultation Time with Patient: Greater than 30 (spent 40 minutes with patient via teleneurology)
--- NOTE | 2020-12-23 18:35 | US ---
EXAMINATION TYPE: US venous doppler duplex LE BI DATE OF EXAM: 12/23/2020 4:05 PM COMPARISON: NONE CLINICAL HISTORY: dvt. COVID SIDE PERFORMED: bilateral TECHNIQUE: The lower extremity deep venous system is examined utilizing real time linear array sonog marilu with graded compression, doppler sonography and color-flow sonography. VESSELS IMAGED: Common Femoral Vein Deep Femoral Vein Greater Saphenous Vein * Femoral Vein Popliteal Vein Small Saphenous Vein * Proximal Calf Veins (* superficial vessels) Right Leg: no evidence of DVT Left Leg: no evidence of DVT IMPRESSION: No evidence of bilateral lower extremity DVT.
[2020-12-24 00:46] LABS: Partial Thromboplastin Time 23.4 sec (22.0-30.0); Prothrombin Time 10.6 sec (9.0-12.0)
--- NOTE | 2020-12-24 06:29 | CONS ---
CONSULTATION DATE OF SERVICE: 12/23/2020 REASON FOR CONSULTATION: COVID-19 infection. HISTORY OF PRESENT ILLNESS: The patient is a 55-year-old male, currently still having symptoms mostly of URI, currently more of a head cold about 5-6 days before presentation to hospital. The patient was evaluated at [facility] on the 20 December 2020. The patient was diagnosed with acute COVID-19 infection. The patient has received monoclonal antibodies and subsequently discharged home. The patient mentioned he started having some numbness and tingling in his left arm where the patient did have the IV. The next day he noted right hand had subsequently some numbness tenderness lower extremity and some weakness in the legs. The patient mentions it is hard for him to stand on his feet. Denies having any fall. Has been complaining of numbness. Denies having any bowel or bladder problems. With these symptoms, the patient was brought back to the hospital. The patient on presentation to the hospital was afebrile. The patient has been saturating about 97% on 3 L, oxygen saturations on room air have not been documented in the chart. The patient did have a normal white count with no lymphopenia. D-dimer was 13.56. WBC 6.64. Creatinine is normal. Liver enzymes are normal. CRP of 23.3 repeat is 1.4. Procalcitonin 0.06. The patient did have a chest x- ray followed by CT angiogram of the chest that shows negative for PE, did show scattered peripheral infiltrates, possible compatible with atypical pneumonia. The patient has been admitted to the hospital. Infectious Disease was consulted for further management. Patient has already been evaluated by Neurology with concern for possible Guillain-Foley syndrome and plan is for an LP followed by IG infusion. REVIEW OF SYSTEMS: Positive points have been mentioned in HPI. Rest of the systems are negative. PAST MEDICAL HISTORY: Hypertension. PAST SURGICAL HISTORY: Hernia repair. Eye surgery. SOCIAL HISTORY: No history of smoking. Rarely drinks. Admits to marijuana use. FAMILY HISTORY: No pertinent findings noticed. ALLERGIES: Allergies to CODEINE and MORPHINE. MEDICATIONS: The patient is currently on Tylenol, vitamin C, vitamin D3, Decadron, Motrin, Zestril, Lopressor, Narcan, Zofran, remdesivir, zinc sulfate. PHYSICAL EXAMINATION: VITAL SIGNS: Blood pressure 157/81 with a pulse of 87, temperature 98.4, he is 97% on 3 L nasal cannula. GENERAL DESCRIPTION: Patient is a middle-aged male lying in bed in no distress. No tachypnea or accessory muscles of respiration use. HEENT: Examination shows no pallor or scleral icterus. Oral mucous membrane is dry. NECK: Trachea central, no thyromegaly. LUNGS: Unlabored breathing, coarse breath sounds bilaterally. No wheeze. HEART: S1-S2, regular rate and rhythm. ABDOMEN: Soft, no tenderness. No guarding or rigidity. EXTREMITIES: No edema of the feet. SKIN: No rash or mass palpable. NEUROLOGICAL: Patient is awake, alert, oriented times three. Weakness to the lower extremities. LABS: Hemoglobin 14.4, white count 9.46, d-dimer down to 6.64, BUN of 15, 0.77, CPR is down to 1.4. Chest x-ray report as mentioned above. DIAGNOSTIC IMPRESSION: Patient admitted to the hospital predominantly with numbness and weakness in the hand as well as lower extremity with concern for possible Guillain-Foley related to COVID infection versus to his monoclonal antibodies. This patient with underlying COVID infectious symptoms that started about 5-6 days ago, per history. PLAN: 1. Await for the LP to be completed in the morning and possible infusion of . 2. Monitor his neurologic status closely. 3. The patient will be started on remdesivir, along with dexamethasone, Lovenox, zinc and ascorbic acid. 4. We will follow on clinical condition and investigations to further adjust medication if needed. Thank you for this consultation. Will follow this patient along with you. MMODL / IJN: [id number] /
[2020-12-24 08:10] LABS: Cholesterol 152 mg/dL (<200); HDL Cholesterol 34 mg/dL (40-60); LDL Cholesterol,Calculated 101 mg/dL (0-99); Triglycerides 86 mg/dL (<150)
[2020-12-24] MEDS: lisinopriL 20 MG TAB PO SCH ×2 (08:31→21:12)
[2020-12-24] MEDS: CHOLECALCIFEROL 25 MCG (1000 IU) TABLET PO SCH (08:31)
[2020-12-24] MEDS: DEXAMETHASONE SOD PHOSPHATE 10 MG/ML 1 ML VIAL IV SCH (08:31)
[2020-12-24] MEDS: ASCORBIC ACID 500 MG TAB PO SCH (08:32)
[2020-12-24] MEDS: METOPROLOL TARTRATE 25 MG TAB PO SCH ×2 (08:32→21:12)
[2020-12-24] MEDS: ZINC SULFATE 220 MG CAP PO SCH (08:32)
[2020-12-24 09:56] LABS: Basophils # (A) 0.02 X 10*3/uL (0.00-0.10); Basophils % (A) 0.2 %; Eosinophils # (A) 0.01 X 10*3/uL (0.04-0.35); Eosinophils % (A) 0.1 %; HCT 43.6 % (39.6-50.0); HGB 14.7 g/dL (13.0-17.0); Lymphocytes % (A) 30.8 %; MCH 31.1 pg (27.0-32.0); MCHC 33.7 g/dL (32.0-37.0); MCV 92.2 fL (80.0-97.0); Mean Platelet Volume 9.8 fL (9.5-12.2); Monocytes # (A) 0.77 X 10*3/uL (0.20-1.00); Monocytes % (A) 7.2 %; Neutrophils # (A) 6.56 X 10*3/uL (1.80-7.70); Neutrophils % (A) 61.3 %; Platelet Count 520 X 10*3/uL (140-440); RBC 4.73 X 10*6/uL (4.40-5.60); RDW 13.2 % (11.5-14.5)
--- NOTE | 2020-12-24 11:22 | P.PN ---
Progress Note - Text Progress Note Date: 12/24/20 (1111) 55-year-old male for lumbar puncture. Ordered for alterations in sensorium. Coagulopathies: Platelets 531, INR 1.0, PTT 23.4, creatinine 0.77. Patient had been receiving Lovenox 100 mg every 12 hours which his treatment dose. Therefore we had wait 24 hours from the last dose which was around 12/23/2020 at 11:11 AM. Medications:Nothing significant. Consent obtained and confirmed . Timeout performed Sterile protocol was used throughout procedure. L3 4 was identified and patient sitting off edge of bed. Chlorhexidine 2 was used to clean the patient's back. Lidocaine 1% 3 mL was used as local and was infiltrated. Spinal needle 22- gauge 3-1/2 inches was used in one attempt. CSF was obtained. No heme. Specimens collected 4-2 mL each. Needle was withdrawn and Band-Aid applied. Patient tolerated procedure well without complication. Stable for transfer to floor.
[2020-12-24 12:01] LABS: Glucose,CSF 62 mg/dL (40-70); Total Protein,CSF 83 mg/dL (12-60)
[2020-12-24 12:12] LABS: Appearance,CSF Clear; CSF Tube Number 4; Nucleated Cells, CSF 5 u/L (0-5); Red Blood Cell,CSF 1 u/L (0-10)
[2020-12-24 12:18] LABS: Diff, Total Cells Cnt, CSF 100; Mononuclear WBC,CSF 100 %
--- NOTE | 2020-12-24 14:20 | P.PN ---
Subjective Progress Note Date: 12/24/20 Principal diagnosis: Acute covid 19 pneumonia Acute hypoxic respiratory failure symmetric neuropathy Bilateral symmetrical numbness of the extremities Hypertension hypertensive cardiovascular disease Likely baseline COPD 12/24/2020, patient seen eval examined during the rounds status 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, patient is still have numbness in the extremities, overall remains stable however shortness of breath stable, patient is on therapy for Coreg 19 pneumonia along with supplemental oxygen, preliminary results of the spinal tap his bag patient has elevated total protein of 83 in the CSF, duplex ultrasound of the lower extremity negative for DVT, 12/23/2020, patient seen eval examined during the rounds labs reviewed medications reviewed care plan discussed, shortness of breath still there intermittent cough is present neurology is evaluating this patient suspecting Guillain-Mendez syndrome patients to get a spinal tap, however will caution attempt due to being on Lovenox need to stop 12 hour before, patient received a dose of IV REMdesivir 200 mg yesterday we'll continue it 100 mg IV for 4 more days This is a 55-year-old male with history of smoking 3 packs per day lately has however has been not smoking, patient came into the hospital due to numbness in all 4 extremity, patient was diagnosed as the cord 19 pneumonia about a week ago with symptoms onset, has been more short of breath lately, patient did present in the ER previously for monoclonal IV antibody therapy after that he started having numbness in his feet and arms came into the hospital for further evaluation and intervention and treatment Objective - Vital Signs Vital signs: Vital Signs Temp 98.3 F 12/24/20 13:48 Pulse 88 12/24/20 13:48 Resp 19 12/24/20 13:48 BP 128/84 12/24/20 13:48 Pulse Ox 97 12/24/20 13:48 Intake & Output 12/23/20 12/24/20 12/24/20 18:59 06:59 18:59 Intake Total 260 Output Total 2 775 Balance 258 -775 Intake: Oral 260 Output: Urine 2 775 - Exam - Constitutional General appearance: disheveled, mild distress - EENT Eyes: PERRLA Ears: bilateral: normal - Neck Carotids: bilateral: upstroke normal - Respiratory Respiratory: bilateral: CTA - Cardiovascular Rhythm: regular Heart sounds: normal: S1, S2 - Gastrointestinal General gastrointestinal: normal bowel sounds, soft - Neurologic Neurologic: CNII-XII intact - Musculoskeletal Musculoskeletal: gait normal, generalized weakness, strength equal bilaterally - Psychiatric Psychiatric: A&O x's 3, appropriate affect, intact judgment & insight - Labs CBC & Chem 7: 12/24/20 06:08 12/23/20 15:02 Labs: Abnormal Lab Results - Last 24 Hours (Table) 12/23/20 12/23/20 12/24/20 Range/Units 15:02 15:02 06:08 WBC 10.70 H (4.50-10.00) X 10*3/uL Plt Count 520 H (140-440) X 10*3/uL Eosinophils # 0.01 L (0.04-0.35) X 10*3/uL ESR 64 H (0-15) mm/hr D-Dimer (<0.60) mg/L FEU Glucose 153 H (74-99) mg/dL LDL Cholesterol, Calc (0-99) mg/dL HDL Cholesterol (40-60) mg/dL CSF Total Protein (12-60) mg/dL 12/24/20 12/24/20 12/24/20 Range/Units 06:08 06:08 11:18 WBC (4.50-10.00) X 10*3/uL Plt Count (140-440) X 10*3/uL Eosinophils # (0.04-0.35) X 10*3/uL ESR (0-15) mm/hr D-Dimer 1.44 H (<0.60) mg/L FEU Glucose (74-99) mg/dL LDL Cholesterol, Calc 101 H (0-99) mg/dL HDL Cholesterol 34 L (40-60) mg/dL CSF Total Protein 83 H (12-60) mg/dL Microbiology - Last 24 Hours (Table) 12/22/20 11:17 Blood Culture - Preliminary Blood No Growth after 48 hours 12/22/20 11:17 Blood Culture - Preliminary Blood No Growth after 48 hours Assessment and Plan Assessment: Acute cvid 19 pneumonia Acute hypoxic respiratory failure 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
--- NOTE | 2020-12-24 14:27 | PN ---
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 Dr. Hawk of neurology has seen the patient and the patient underwent lumbar puncture, which showed CSF total protein of 83 and the total cells are only 5 which are mononuclear. The glucose is 62, which is normal. The patient still has significant weakness. PAST MEDICAL HISTORY: Reviewed. REVIEW OF SYSTEMS: CARDIOVASCULAR: No angina. RESPIRATORY: Occasional cough. GI: As mentioned earlier. : No dysuria. NERVOUS SYSTEM: Diffuse weakness. CURRENT MEDICATIONS: Reviewed and include Tylenol, vitamin D3, dexamethasone, Motrin. Zestril, Lopressor, Narcan, Zofran, remdesivir, zinc sulfate. PHYSICAL EXAM: GENERAL: Patient is alert and oriented times three. VITAL SIGNS: Pulse 94, blood pressure 157/93, respirations 19, temperature 97.4, pulse ox 93% on 3 liters. HEENT: Conjunctivae normal. NECK: No jugular venous distention. No carotid bruits. No lymph node enlargement. RESPIRATORY: Breath sounds diminished at the bases. A few scattered rhonchi. HEART: S1 and S2, muffled. ABDOMEN: Soft, no tenderness. NERVOUS SYSTEM: Significant weakness present in the proximal upper limbs grade 3, distal upper limbs grade 4, proximal lower limbs grade 3 and distal lower limbs grade 4. Significant sensory loss about 30% sensation loss in the upper limbs, getting to 80% toward extremity. The lower limbs proximally about 50% sensory loss and going to almost 100% to his distal limbs, even the patient is able to distinguish pinpricks sensation. SKIN: No rashes. JOINTS: No active deforming arthropathy. LAB STUDIES: WBC 10.2, hemoglobin 14.7, and D-dimer is 1.44. ASSESSMENT: 1. Acute COVID-19 infection with bilateral COVID-19 pneumonia, right more than the left with interstitial pneumonia. 2. 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 3. Hypertension. 4. History of THC. 5. Elevated platelet counts. 6. Elevated D-dimer without any evidence of pulmonary embolism. 7. Hyponatremia. 8. Elevated random glucose. 9. Elevated ferritin. 10.Elevated CRP. 11.Obesity with body mass of 31.6. 12.FULL CODE. RECOMMENDATIONS AND DISCUSSION: Recommend to continue current management and continue symptomatic treatment. Discussed with Neurology, Infectious Disease. The patient is currently on remdesivir. Neurology is starting on IV immunoglobulin. Otherwise monitor closely. Neuro checks. The patient he had some numbness on the fingers and time of infusing BAM and subsequently progressed rapidly within a day and by the evening and overnight the patient had significant numbness of both upper and lower limbs with some weakness also by next morning. The time series of the events most likely points to the neurological syndrome such as Guillain-Arcadia syndrome associated with COVID-19 rather than BAM but contributing factor cannot be entirely ruled out. We will continue to monitor. Prognosis guarded. Further recommendations to follow. MMODL / IJN: [id number] /
[2020-12-24] MEDS ORDERED: IMMUNE GLOBULIN (GAMMAGARD) 5 GM in EMPTY BAG 1 BAG IV ONE (15:00)
[2020-12-24] MEDS ORDERED: IMMUNE GLOBULIN (GAMMAGARD) 30 GM in EMPTY BAG 1 BAG IV ONE (15:00)
--- NOTE | 2020-12-24 16:03 | P.PN ---
Subjective Progress Note Date: 12/24/20 The patient reports that he is doing a lot the same today. His symptoms have not changed. He tolerated the lumbar puncture without difficulty. He denies difficulty with swallowing. There is no change in vision. Patient reports that he has not yet had a bowel movement, since admission. He is usually very regular. Patient reports being unable to roll over in the bed, without assistance. Objective - Vital Signs Vital signs: Vital Signs Temp 98.3 F 12/24/20 13:48 Pulse 88 12/24/20 13:48 Resp 19 12/24/20 13:48 BP 128/84 12/24/20 13:48 Pulse Ox 97 12/24/20 13:48 Intake & Output 12/23/20 12/24/20 12/24/20 18:59 06:59 18:59 Intake Total 260 Output Total 2 775 Balance 258 -775 Intake: Oral 260 Output: Urine 2 775 - Exam Gen.: The patient is supine in the bed. He is in no acute distress. HEENT: Head is atraumatic, normocephalic. Fundus not visualized. There is no scleral icterus. Mucous members are moist. Neurological examination Mental status: The patient is awake, alert and oriented 3. His speech is clear. There is no dysarthria or aphasia. Cranial nerves: 2-12 grossly intact Motor: The patient is unable to raise his arms over his head. He is unable to elevate his legs off the bed. He is able to abduct and adduct hips. Ankle plantar flexors 3+/4+. Ankle dorsiflexors 2+/4+. Strength is slightly less on the left bilaterally CSF protein is elevated at 82. There is no leukocytosis. CSF glucose is normal. - Labs CBC & Chem 7: 12/24/20 06:08 12/23/20 15:02 Labs: Abnormal Lab Results - Last 24 Hours (Table) 12/23/20 12/23/20 12/24/20 Range/Units 15:02 15:02 06:08 WBC 10.70 H (4.50-10.00) X 10*3/uL Plt Count 520 H (140-440) X 10*3/uL Eosinophils # 0.01 L (0.04-0.35) X 10*3/uL ESR 64 H (0-15) mm/hr D-Dimer (<0.60) mg/L FEU Glucose 153 H (74-99) mg/dL LDL Cholesterol, Calc (0-99) mg/dL HDL Cholesterol (40-60) mg/dL CSF Total Protein (12-60) mg/dL 12/24/20 12/24/20 12/24/20 Range/Units 06:08 06:08 11:18 WBC (4.50-10.00) X 10*3/uL Plt Count (140-440) X 10*3/uL Eosinophils # (0.04-0.35) X 10*3/uL ESR (0-15) mm/hr D-Dimer 1.44 H (<0.60) mg/L FEU Glucose (74-99) mg/dL LDL Cholesterol, Calc 101 H (0-99) mg/dL HDL Cholesterol 34 L (40-60) mg/dL CSF Total Protein 83 H (12-60) mg/dL Microbiology - Last 24 Hours (Table) 12/22/20 11:17 Blood Culture - Preliminary Blood No Growth after 48 hours 12/22/20 11:17 Blood Culture - Preliminary Blood No Growth after 48 hours Assessment and Plan Assessment: 1. Generalized weakness, numbness and areflexia in a patient who is Covid 19 positive. CSF positive for Guillain-Mendez syndrome, with elevated protein and normal white count Plan: 1. We will begin IVIG, daily for 5 days 2. Results of the CSF studies were discussed with patient. Medication is discussed with patient. 3. Physical therapy evaluation and treatment 4. Dr. Giuliano Lind will assume coverage of this patient on Friday, December 25, 2020 Time with Patient: Less than 30 (spent 20 minutes with patient via teleneurology)
[2020-12-24] MEDS: REMDESIVIR 100 MG in SODIUM CHLORIDE 0.9% 250 ML IVPB SCH (19:56)
--- NOTE | 2020-12-24 20:12 | PN ---
PROGRESS NOTE DATE OF SERVICE: 12/24/2020 REASON FOR FOLLOWUP: COVID-19 pneumonia. INTERVAL HISTORY: Patient is currently afebrile. Patient is breathing slightly comfortably. Patient denies having any chest pain. He did have a cough and bringing up some sputum. No hemoptysis. No abdominal pain or diarrhea. PHYSICAL EXAMINATION: Blood pressure 165/96, pulse of 106, temperature 98.7. He is 96% on 3 L nasal cannula. General description is a middle-aged male up in the bed in no distress. Respiratory system: Unlabored breathing, decreased intensity of breath sounds. No wheeze. Heart S1, S2. Regular rate and rhythm. Abdomen soft, no tenderness. LABS: Hemoglobin 14.7, white count 10.70. D-dimer is 1.44. DIAGNOSTIC IMPRESSION AND PLAN: Patient with acute COVID-19 infection. The patient receiving monoclonal antibodies ( ) and is being treated for possible Guillain-Quinton syndrome. Neurology is on the case. Patient started on IgG. The patient is covered on Remdesivir, Decadron, Lovenox for his COVID-19 pneumonia. Continue current treatment protocol and monitor clinical course closely. MMODL / IJN: [id number] /
[2020-12-25] MEDS: DEXAMETHASONE SOD PHOSPHATE 10 MG/ML 1 ML VIAL IV SCH (09:14)
[2020-12-25] MEDS: ZINC SULFATE 220 MG CAP PO SCH (09:15)
[2020-12-25] MEDS: ASCORBIC ACID 500 MG TAB PO SCH (09:15)
[2020-12-25] MEDS: CHOLECALCIFEROL 25 MCG (1000 IU) TABLET PO SCH (09:16)
[2020-12-25] MEDS: lisinopriL 20 MG TAB PO SCH ×2 (09:16→19:38)
[2020-12-25] MEDS: METOPROLOL TARTRATE 25 MG TAB PO SCH ×2 (09:16→19:37)
--- NOTE | 2020-12-25 12:40 | P.PN ---
Subjective Progress Note Date: 12/25/20 On seeing the patient for the first time regarding neurological management. Please refer to Dr. Hawk note for further neurological workup as well as detailed the history. Upon seeing the patient today patient feels he feels a bit better since he received the first dose of IVIG yesterday. He continues to have upper and lower extremity weakness and numbness. He denies of visual disturbance or getting his words out. Objective - Vital Signs Vital signs: Vital Signs Temp 98.5 F 12/25/20 10:27 Pulse 80 12/25/20 10:27 Resp 20 12/25/20 10:27 BP 170/84 12/25/20 10:27 Pulse Ox 97 12/25/20 10:27 Intake & Output 12/24/20 12/25/20 12/25/20 18:59 06:59 18:59 Output Total 575 Balance -575 Output: Urine 575 Other: # Voids 1 - Exam GENERAL: The patient is lying in bed and is not in acute distress. NEUROLOGICAL: Higher mental function: The patient is awake, alert, oriented to self, place and time. Patient is following commands. No aphasia and no neglect. Cranial nerves: The pupils are round, equal and reactive to light and accommodat ion. Visual thompson are full to confrontation throughout. Extraocular movement is intact no nystagmus is noted. Facial sensation is normal to touch throughout. The facial strength is normal throughout. Hearing is normal bilaterally to hand rub. Tongue is midline and moved [id number] without any difficulty. No dysarthria is noted. Shoulder shrug is normal bilaterally. Motor: Gait is deferred because of patient's condition. The strength is upper extremities are 3-4/5 bilaterally wihile lowers are 2/5 bilaterally. Normal bulk. Cerebellum: Normal finger to nose bilaterally. Sensation: Sensation is normal to touch throughout. Reflexes (right/left): 0 throughout. Plantars are downgoing bilaterally. - Labs CBC & Chem 7: 12/24/20 06:08 12/23/20 15:02 Labs: Abnormal Lab Results - Last 24 Hours (Table) 12/24/20 Range/Units 11:18 CSF Total Protein 83 H (12-60) mg/dL Microbiology - Last 24 Hours (Table) 12/24/20 11:18 CSF Gram Stain - Preliminary Cerebral Spinal Fluid CSF Culture - Preliminary 12/22/20 11:17 Blood Culture - Preliminary Blood No Growth after 48 hours 12/22/20 11:17 Blood Culture - Preliminary Blood No Growth after 48 hours Assessment and Plan Assessment: Generalized weakness, numbness and areflexia in a patient who is Covid 19 positive. CSF positive for Guillain-Mendez syndrome, with elevated protein and normal white count Acute Covid 19 pneumonia Acute hypoxic respiratory of due to acute Covid 19 pneumonia Hypertension History of COPD Plan: 1. Continue IVIG, daily for 5 days (today is day 2). CSF: clear, colorless, 5 nucleated cells (normal), glucose 62 and protein 83 (elevated). 2. Physical therapy evaluation and treatment 3. I ordered hemoglobin A1c, vitamin B12, folate, vitamin B6 to see whether any other underlying factor playing role in patient paresthesia. 4. From a neurology perspective the patient will benefit from inpatient rehab. We'll defer the rest of medical management to the primary team. Will continue to follow Giuliano Lind MD Neuro-Hospitalist Time with Patient: Less than 30
[2020-12-25] MEDS ORDERED: MELATONIN 3 MG TABLET PO PRN (14:30)
[2020-12-25] MEDS ORDERED: IMMUNE GLOBULIN (GAMMAGARD) 5 GM in EMPTY BAG 1 BAG IV ONE (15:00)
[2020-12-25] MEDS ORDERED: IMMUNE GLOBULIN (GAMMAGARD) 30 GM in EMPTY BAG 1 BAG IV ONE (15:00)
--- NOTE | 2020-12-25 17:01 | ECHOF ---
Referral Reason:HTN, ST MEASUREMENTS -------- HEIGHT: 180.3 cm WEIGHT: 103.0 kg BP: 152/91 IVSd: 1.6 cm (0.6 - 1.1) LVIDd: 4.1 cm (3.9 - 5.3) LVPWd: 1.7 cm (0.6 - 1.1) EDV(Teich): 76 ml IVSs: 1.8 cm LVIDs: 2.8 cm LVPWs: 2.3 cm %IVS Thck: 11 % ESV(Teich): 30 ml EF(Teich): 61 % %FS: 32 % SV(Teich): 46 ml LALs A4C: 5.1 cm LAAs A4C: 18.7 cm LAESV A-L A4C: 59 ml LAESV MOD A4C: 53 ml LALs A2C: 4.6 cm LAAs A2C: 17.3 cm LAESV A-L A2C: 56 ml LAESV MOD A2C: 54 ml LAESV(A-L): 60 ml LAESV Index (A-L): 26.99 ml/m Ao Diam: 4.1 cm (2.0 - 3.7) AV Cusp: 2.5 cm (1.5 - 2.6) EPSS: 0.2 cm MV E Martin: 0.47 m/s MV DecT: 253 ms MV Dec [place]: 1.9 m/s MV A Martin: 0.78 m/s MV E/A Ratio: 0.61 MV PHT: 74 ms LVOT Vmax: 1.03 m/s LVOT maxP.21 mmHg AV Vmax: 1.19 m/s AV maxP.65 mmHg AR Vmax: 3.06 m/s AR maxP.50 mmHg AR PHT: 396 ms AR Dec Time: 1367 ms AR Dec [place]: 2.2 m/s MV EF SLOPE: 89.42 mm/s (70 - 150) MV EXCURSION: 19.91 mm (> 18.000) FINDINGS -------- Sinus rhythm. This was a technically difficult study with suboptimal views. The left ventricular size is normal. There is moderate concentric left ventricular hypertrophy. O verall left ventricular systolic function is low-normal with, an EF between 50 - 55 %. The RV was not well visualized. Normal LA size by volume 22+/-6 ml/m2. The right atrium was not well visualized. 5.0mg of Lumason was utilized for enhancement of images Interatrial and interventricular septum intact. The aortic valve was not well visualized. There is mild aortic regurgitation. There is no evidenc e of aortic stenosis. The mitral valve was not well visualized. There is trace to mild mitral regurgitation. The tricuspid valve was not well visualized. Unable to estimate RVSP due to inadequate TR jet spect ral doppler profile. The aortic root is mildy dilated. IVC Not well visulized. There is no pericardial effusion. CONCLUSIONS -------- 1. The left ventricular size is normal. 2. There is moderate concentric left ventricular hypertrophy. 3. Overall left ventricular systolic function is low-normal with, an EF between 50 - 55 %. 4. There is mild aortic regurgitation. 5. There is trace to mild mitral regurgitation. 6. The aortic root is mildy dilated. BALL SHAGGER: Estela You RDCS
--- NOTE | 2020-12-25 18:42 | PN ---
PROGRESS NOTE DATE OF SERVICE: 12/25/2020 REASON FOR FOLLOWUP: COVID-19 infection. INTERVAL HISTORY: The patient is currently afebrile. The patient is breathing slightly comfortably. The patient denies having any chest pain. Minimal cough. No abdominal pain. He still complains of weakness in the legs, but no worsening. PHYSICAL EXAMINATION: Blood pressure 152/94 with a pulse of 105, temperature 98.4. He is 96% on 3 L nasal cannula. General description is a middle-aged male lying in bed in no distress. RESPIRATORY SYSTEM: Unlabored breathing with decreased intensity of breath sounds. No wheeze. HEART: S1, S2. Regular rate and rhythm. ABDOMEN: Soft. No tenderness. LABS: Hemoglobin is 14, white count 10.70. DIAGNOSTIC IMPRESSION AND PLAN: 1. Patient with acute COVID-19 infection. Patient is currently covered with dexamethasone, Lovenox, zinc and remdesivir. 2. Patient with lower extremity weakness Neurology is following the patient and is on IVIG. MMODL / IJN: [id number] /
[2020-12-25 19:29] LABS: Folate, Serum 13.1 ng/mL
[2020-12-25] MEDS: REMDESIVIR 100 MG in SODIUM CHLORIDE 0.9% 250 ML IVPB SCH (19:38)
--- NOTE | 2020-12-25 20:13 | P.PN ---
Subjective This is a pleasant 55 years old male with past medical history of hypertension. Was recently diagnosed with covid infection on 12/20 received bamlanivimab an outpatient to be followed by numbness in all extremities associated with weakness. Has been found to have Goulian Bare syndrome with loss of reflexes and elevated protein and CSF at 83 while other parameters are unremarkable. Patient was started on IVIG 5 doses, his last dose is known to be on 12/28. And today showing improvement as today he can move his upper extremity almost close to normal with only minimum numbness distally however he still has weakness in his lower extremity although he can move his legs from [id number] he cannot lift it up from bed and all his lower extremities are normal. Also patient is been followed closely by ID and pulmonary service for his Covid pneumonia and he is currently receiving remdesivir and tomorrow is going to be last dose. Also is on dexamethasone. Also patient complaining of from mild headache, constipation and he wants some laxatives and insomnia started on melatonin also CAT scan showing 0.5 cm left lung nodule that needs follow-up as an outpatient, patient informed with risk of cancer explained and he agrees to follow up with Dr. Perez boatswain mate upon discharge. Other than that he has negative DVT bilaterally, CTA of the chest is negative for PE but showed bilateral groundglass appearance. CT brain is negative. He has mild leukocytosis due to steroid effect. And d- dimer is trending down Ejection fraction is 50-55% with moderate LVH patient is saturating 96% on 3 L oxygen via nasal cannula. Trending down D-Dimer and Currently 1.4. Mild Leukocytosis at 10.7, Rest of the CBC Is Unremarkable. BMP and Liver Enzymes Are Unremarkable. Vitamin B12 Is 810 and Folate 13.1. BothCalcitonin Is Normal at 0.06 Objective - Vital Signs Vital signs: Vital Signs Temp 98.5 F 12/25/20 10:27 Pulse 80 12/25/20 10:27 Resp 20 12/25/20 10:27 BP 170/84 12/25/20 10:27 Pulse Ox 97 12/25/20 10:27 Intake & Output 12/24/20 12/25/20 12/25/20 18:59 06:59 18:59 Output Total 575 Balance -575 Output: Urine 575 Other: # Voids 1 - Exam GENERAL: The patient is alert and oriented x3, not in any acute distress. Well developed, well nourished. HEENT: Pupils are round and equally reacting to light. EOMI. No scleral icterus. No conjunctival pallor. Normocephalic, atraumatic. No pharyngeal erythema. No thyromegaly. CARDIOVASCULAR: S1 and S2 present. No murmurs, rubs, or gallops. -PULMONARY: Chest is clear to auscultation, no wheezing . Bilateral scattered crackles ABDOMEN: Soft, nontender, nondistended, normoactive bowel sounds. No palpable organomegaly. MUSCULOSKELETAL: No joint swelling or deformity. EXTREMITIES: No cyanosis, clubbing, or pedal edema. -NEUROLOGICAL: strength is 5/5 and some distal numbness in the upper extremity. While strength in lower extremity is 2/5 illness in all lower extremity. areflexia . Cranial nerves are grossly intact SKIN: No rashes. no petechiae. 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 Risk of cancer explained. Plan: This is a pleasant 55 years old male who presents with Covid and GBS. Continue with dexamethasone and remdesivir , and multiple vitamins, vitamin C, D and zinc. Continue dexamethasone. Also continue with IVIG. Several consultants on the case. neurology, infectious disease and pulmonology teams conLabs and medication were reviewed.. Continue same treatment. Continue with symptomatic treatment. Resume home medication. Monitor lytes and vitals. DVT and GI prophylaxis. Further recommendationsas per clinical course of the patient DVT prophylaxis: Subcutaneous heparin GI Prophylaxis: Pepcid PT/OT: Pending Prognosis is guarded
[2020-12-25] MEDS: SENNOSIDES-DOCUSATE SODIUM 1 EACH TAB PO SCH (21:10)
[2020-12-25] MEDS: ENOXAPARIN 40 MG/0.4 ML SYRINGE SQ SCH (21:10)
[2020-12-25 23:55] LABS: Hemoglobin A1C 6.1 % (4.0-6.0)
[2020-12-26 05:34] LABS: Basophils % (A) 0 %; Eosinophils % (A) 0 %; HCT 44.8 % (39.0-53.0); HGB 15.3 gm/dL (13.0-17.5); Lymphocytes % (A) 23 %; MCH 30.9 pg (25.0-35.0); MCHC 34.2 g/dL (31.0-37.0); MCV 90.3 fL (80.0-100.0); Mean Platelet Volume 7.1; Monocytes # (A) 0.5 k/uL (0-1.0); Monocytes % (A) 6 %; Neutrophils # (A) 6.4 k/uL (1.3-7.7); Neutrophils % (A) 70 %; Platelet Count 443 k/uL (150-450); RBC 4.96 m/uL (4.30-5.90); RDW 12.9 % (11.5-15.5); WBC 9.1 k/uL (3.8-10.6)
[2020-12-26 06:56] LABS: ALT 228 U/L (4-49); AST 138 U/L (17-59); African American GFR (CKD) >90 (>60 ml/min/1.73 sqM); Albumin 3.9 g/dL (3.5-5.0); Albumin/Globulin Ratio 0.9; Alkaline Phosphatase 108 U/L (38-126); Anion Gap 9 mmol/L; Blood Urea Nitrogen 28 mg/dL (9-20); C Reactive Protein 19.1 mg/L (<10.0); Carbon Dioxide 22 mmol/L (22-30); Chloride 105 mmol/L (98-107); Globulin 4.2 g/dL; Glucose 92 mg/dL (74-99); Magnesium 2.3 mg/dL (1.6-2.3); Non-African American GFR(CKD) >90 (>60 ml/min/1.73 sqM); Potassium 4.5 mmol/L (3.5-5.1); Sodium 136 mmol/L (137-145); Total Bilirubin 0.8 mg/dL (0.2-1.3); Total Protein 8.1 g/dL (6.3-8.2)
[2020-12-26] MEDS: ENOXAPARIN 40 MG/0.4 ML SYRINGE SQ SCH (08:13)
[2020-12-26] MEDS: DEXAMETHASONE SOD PHOSPHATE 10 MG/ML 1 ML VIAL IV SCH (08:13)
[2020-12-26] MEDS: METOPROLOL TARTRATE 25 MG TAB PO SCH ×2 (08:14→20:27)
[2020-12-26] MEDS: CHOLECALCIFEROL 25 MCG (1000 IU) TABLET PO SCH (08:14)
[2020-12-26] MEDS: ASCORBIC ACID 500 MG TAB PO SCH (08:14)
[2020-12-26] MEDS: SENNOSIDES-DOCUSATE SODIUM 1 EACH TAB PO SCH ×2 (08:14→20:27)
[2020-12-26] MEDS: lisinopriL 20 MG TAB PO SCH ×2 (08:14→18:26)
[2020-12-26] MEDS: ZINC SULFATE 220 MG CAP PO SCH (08:14)
--- NOTE | 2020-12-26 09:01 | XR ---
EXAMINATION TYPE: XR chest 1V portable DATE OF EXAM: 12/26/2020 COMPARISON: Chest x-ray 12/22/2020 HISTORY: Shortness of breath TECHNIQUE: Single frontal view of the chest is obtained. FINDINGS: Some minimal patchy density persists in the peripheral aspect of the lungs, similar to shell or exam. Patient is rotated. Cardiomediastinal silhouette is stable. IMPRESSION: Findings consistent with pneumonia, correlate.
--- NOTE | 2020-12-26 09:43 | P.PN ---
Subjective Progress Note Date: 12/26/20 Principal diagnosis: covid 19 infectionpossible covid 19 pneumonia Guillian bare syndrome 55-year-old male with significant medical history of hypertension, was admitted to the hospital with a covid-19 infection. patient received monoclonal antibody infusion on 12/20/2020-return to the hospital on 12/22/2020 with the complaint of numbness patient was started on Covid 19 cocktail. neurology was consult due to weakness in all 4 extremities cerebral spinal fluid showed elevated proteins consistent with GBS-patient continued to receive IV Ig 5 doses. Patient able to move all extremities with strength 2/5. on evaluation of the patient this a.m. patient resting comfortably in bed, patient endorses mild shortness of breath and generalized weakness. continue multidisciplinary disciplinary approach due to multiple comorbidities and disease process Objective - Vital Signs Vital signs: Vital Signs Temp 97.7 F 12/26/20 06:04 Pulse 88 12/26/20 06:04 Resp 18 12/25/20 17:07 BP 159/89 12/26/20 06:04 Pulse Ox 96 12/26/20 06:04 Intake & Output 12/25/20 12/26/20 12/26/20 18:59 06:59 18:59 Output Total 600 250 Balance -600 -250 Output: Urine 600 250 - Constitutional General appearance: Present: mild distress - EENT Eyes: Present: EOMI, PERRLA Ears: bilateral: normal - Neck Carotids: bilateral: upstroke normal Thyroid: bilateral: normal size - Respiratory Respiratory: bilateral: diminished (anterior and posterior lung thompson) - Cardiovascular Details: sinus rhythm Heart rate: 74 Rhythm: regular Heart sounds: normal: S1, S2 - Peripheral pulses radial pulse Peripheral Pulses: bilateral: Normal dorsalis pedis Peripheral Pulses: bilateral: Normal - Gastrointestinal General gastrointestinal: Present: normal bowel sounds - Integumentary Integumentary: Present: pale - Musculoskeletal Musculoskeletal Comment(s): strength in all extremities 2/5 - Psychiatric Psychiatric: Present: A&O x's 3, appropriate affect, intact judgment & insight - Allied health notes Allied health notes reviewed: nursing - Labs CBC & Chem 7: 12/26/20 04:44 12/26/20 04:44 Labs: Abnormal Lab Results - Last 24 Hours (Table) 12/25/20 12/26/20 Range/Units 11:47 04:44 Sodium 136 L (137-145) mmol/L BUN 28 H (9-20) mg/dL Hemoglobin A1c 6.1 H (4.0-6.0) % AST 138 H (17-59) U/L ALT 228 H (4-49) U/L C-Reactive Protein 19.1 H (<10.0) mg/L Microbiology - Last 24 Hours (Table) 12/22/20 11:17 Blood Culture - Preliminary Blood No Growth after 72 hours 12/22/20 11:17 Blood Culture - Preliminary Blood No Growth after 72 hours 12/24/20 11:18 CSF Gram Stain - Preliminary Cerebral Spinal Fluid CSF Culture - Preliminary - Imaging and Cardiology Chest x-ray: report reviewed Assessment and Plan Assessment: Acute covid-19 pneumoniacontinue Covid cocktailcontinue consultation with pulmonary critical care Acute hypoxic respiratory failure-continue consultation with pulmonary critical care GBS-continue consultation with neurology for expert opinion and continue IVIG Hypertension CT of the chest showed pulmonary nodules 0.5 follow-up outpatient Cardiovascular disease Possible COPDformer smoker Current illicit drug use of marijuana Full code Plan: Covid 19 [id number] Lovenox and IV Decadron, and REMDESIVIR- consultation with pulmonary critical care for recommendations and treatment plan Colbert Mendez syndromecontinue consultation with neurology in continue IVIG Hypertension continue home medication Acute hypoxic rest or failuresupplemental oxygen to keep saturations greater than 94 present Continue home medications Further recommendations to come based on patient's clinical condition Time with Patient: Greater than 30
--- NOTE | 2020-12-26 11:35 | P.NPCON ---
History of Present Illness - Chief Complaint medical debility - History of Present Illness I had the opportunity to see patient for inpatient rehab consultation with regard to medical debility. Patient admitted to [facility] December 20 with history of: Positive diagnosis 2 days as well as recent numb is uppers. Seen in consultation by Dr. Perez for the pneumonia. Seen by telemetry neurology diagnosed possible GBS. Chest x-rays followed and consistent with pneumonia. CTA negative for PE. Head CT negative. Venous Doppler negative for DVT right or left leg. His started therapy. PT reports two-person maximal assistance bed mobility and standing. Strength poor. OT reports maximal assistance upper dr essing and bathing and two-person total assistance for lower dressing and toileting. Previous functional history as elicited patient: 55-year-old right-handed white male who is lives in one floor home with . Patient works full-time. Patient and share the cooking and laundry patient independent with driving, standing shower and gait without device. Denies tobacco and has rare d rink. Family history mother was a smoker. Review of Systems Review of systems: ENT: Denies sneezes or discharge. Eyes: Denies discharge or photophobia. Cardiac: Denies chest pain or palpitation. Pulmonary: at least mild shortness of breath. Gastrointestinal: Denies nausea, emesis, constipation, diarrhea. Genitourinary: Denies discharge or frequency. Musculoskeletal: Denies muscle or bone aches. Neurologic: generalized weakness. Endocrine: Denies shakes or sweats. Oncology: Denies cancers. Dermatologic: Denies rash, itching, pruritus. ALLERGY/immunology: Denies sneezes, rashes. Past Medical History Past Medical History: Hypertension History of Any Multi-Drug Resistant Organisms: None Reported Past Surgical History: Hernia Repair Additional Past Surgical History / Comment(s): eye surgery Past Psychological History: No Psychological Hx Reported Smoking Status: Never smoker Past Alcohol Use History: Rare Past Drug Use History: Marijuana - Past Family History Mother Family Medical History: Cancer, COPD Father Family Medical History: Myocardial Infarction (ID) Medications and Allergies Home Medications Medication Instructions Recorded Confirmed Type Metoprolol Tartrate [Lopressor] 25 mg PO BID 12/22/20 12/22/20 History lisinopriL [Zestril] 20 mg PO BID 12/22/20 12/22/20 History Allergies Allergy/AdvReac Type Severity Reaction Status Date / Time codeine Allergy Rash/Hives Verified 12/22/20 18:05 morphine Allergy Rash/Hives Verified 12/22/20 18:05 Physical Exam Vitals: Vital Signs Temp Pulse Resp BP Pulse Ox 12/26/20 10:00 98.4 F 112 H 18 163/94 96 12/26/20 08:15 88 18 12/26/20 06:04 97.7 F 88 159/89 96 12/26/20 01:48 97.7 F 76 166/87 98 12/25/20 21:46 97.6 F 84 184/87 93 L 12/25/20 17:07 98.4 F 105 H 18 152/94 96 12/25/20 14:00 97.9 F 97 20 154/92 95 Intake and Output 12/25/20 12/26/20 12/26/20 22:59 06:59 14:59 Output Total 600 250 200 Balance -600 -250 -200 Output: Urine 600 250 200 Skin: Good color, texture, turgor. General: Medium build and comfortable appearance. Head: Normocephalic, atraumatic. Eyes: Symmetric. Pupils equal round. Ears: Symmetric. Hearing within normal limits. Mouth: Clear. Neck: Supple. Carotid without bruit. Cardiac: Regular rate and rhythm. Lungs: Clear anteriorly and posteriorly. Abdomen: Soft active nontender. Extremities: Normal tone. Neurological: Mental status: Alert, cooperative, pleasant. Cranial nerves: Symmetric facial tone and trapezius. Motor: arms less than antigravity in legs poor. Sensation: Intact throughout. DTRs: Symmetric and equal throughout. Mobility: patient currently receiving physical therapy and requires a 2 person assist for mobility. Results - Lab Results Most recent lab results Calcium 9.0 mg/dL (8.4-10.2) 12/26/20 04:44 Magnesium 2.3 mg/dL (1.6-2.3) 12/26/20 04:44 12/26/20 04:44 12/26/20 04:44 Assessment and Plan (1) Hypoxia Current Visit: Yes Status: Acute Code(s): R09.02 - HYPOXEMIA SNOMED Code(s): 943931516 (2) Pneumonia due to COVID-19 virus Current Visit: Yes Status: Acute Code(s): U07.1 - COVID-19; J12.82 - Pneumonia due to coronavirus disease 2019 SNOMED Code(s): 415890900862568571 Plan: impression: 1. Medical debility due to Covid positive pneumonia with hypoxia. 2. Newton Mendez syndrome. 3. Hypertension. Plan: At This Time PT and OT Are Ongoing. Safety Concerns Noted but Patient with Poor Endurance and Would Not Be Able Tolerate a Full Inpatient Rehab Program yet.
--- NOTE | 2020-12-26 11:39 | P.PN ---
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, patient is still have numbness in the extremities, overall remains stable however shortness of breath stable, russel crystal is on therapy for Coreg 19 pneumonia along with supplemental oxygen, preliminary results of the spinal tap his bag patient has elevated total protein of 83 in the CSF, duplex ultrasound of the lower extremity negative for DVT, 12/23/2020, patient seen eval examined during the rounds labs reviewed medications reviewed care plan discussed, shortness of breath still there intermittent cough is present neurology is evaluating this patient suspecting Guillain-Mendez syndrome patients to get a spinal tap, however will caution attempt due to being on Lovenox need to stop 12 hour before, patient received a dose of IV REMdesivir 200 mg yesterday we'll continue it 100 mg IV for 4 more days This is a 55-year-old male with history of smoking 3 packs per day lately has however has been not smoking, patient came into the hospital due to numbness in all 4 extremity, patient was diagnosed as the cord 19 pneumonia about a week ago with symptoms onset, has been more short of breath lately, patient did present in the ER previously for monoclonal IV antibody therapy after that he started having numbness in his feet and arms came into the hospital for further evaluation and intervention and treatment Objective - Vital Signs Vital signs: Vital Signs Temp 97.9 F 12/25/20 14:00 Pulse 97 12/25/20 14:00 Resp 20 12/25/20 14:00 BP 154/92 12/25/20 14:00 Pulse Ox 95 12/25/20 14:00 Intake & Output 12/24/20 12/25/20 12/25/20 18:59 06:59 18:59 Output Total 575 600 Balance -575 -600 Output: Urine 575 600 Other: # Voids 1 - Exam - Constitutional General appearance: disheveled, mild distress - EENT Eyes: PERRLA Ears: bilateral: normal - Neck Carotids: bilateral: upstroke normal - Respiratory Respiratory: bilateral: CTA - Cardiovascular Rhythm: regular Heart sounds: normal: S1, S2 - Gastrointestinal General gastrointestinal: normal bowel sounds, soft - Neurologic Neurologic: CNII-XII intact - Musculoskeletal Musculoskeletal: gait normal, generalized weakness, strength equal bilaterally - Psychiatric Psychiatric: A&O x's 3, appropriate affect, intact judgment & insight - Labs CBC & Chem 7: 12/26/20 04:44 12/26/20 04:44 Labs: Microbiology - Last 24 Hours (Table) 12/22/20 11:17 Blood Culture - Preliminary Blood No Growth after 72 hours 12/22/20 11:17 Blood Culture - Preliminary Blood No Growth after 72 hours 12/24/20 11:18 CSF Gram Stain - Preliminary Cerebral Spinal Fluid CSF Culture - Preliminary Assessment and Plan Assessment: Acute cvid 19 pneumonia Acute hypoxic respiratory failure 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
--- NOTE | 2020-12-26 11:40 | P.PN ---
Subjective Progress Note Date: 12/26/20 Principal diagnosis: Acute covid 19 pneumonia Acute hypoxic respiratory failure symmetric neuropathy Bilateral symmetrical numbness of the extremities Hypertension hypertensive cardiovascular disease Likely baseline COPD 12/26/2020, patient seen eval examined during the rounds labs reviewed medications reviewed in respiratory status is stable on 3 drug oxygen continue to get an infusion therapy, post therapy likely will be placed in rehab, cough congestion shortness of breath improved patient remains on therapy for covert pneumonia 12/25/2020, patient seen eval examined during the rounds labs reviewed medications reviewed, patient is on IV IgG infusion, numbness slightly better remains on 3 L oxygen cough congestion shortness of breath stable, 12/24/2020, patient seen eval examined during the rounds status 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, patient is still have numbness in the extremities, overall remains stable however shortness of breath stable, patient is on therapy for Coreg 19 pneumonia along with supplemental oxygen, preliminary results of the spinal tap his bag patient has elevated total protein of 83 in the CSF, duplex ultrasound of the lower extremity negative for DVT, 12/23/2020, patient seen eval examined during the rounds labs reviewed medications reviewed care plan discussed, shortness of breath still there int ermittent cough is present neurology is evaluating this patient suspecting Guillain-Mendez syndrome patients to get a spinal tap, however will caution attempt due to being on Lovenox need to stop 12 hour before, patient received a dose of IV REMdesivir 200 mg yesterday we'll continue it 100 mg IV for 4 more days This is a 55-year-old male with history of smoking 3 packs per day lately has however has been not smoking, patient came into the hospital due to numbness in all 4 extremity, patient was diagnosed as the cord 19 pneumonia about a week ago with symptoms onset, has been more short of breath lately, patient did present in the ER previously for monoclonal IV antibody therapy after that he started having numbness in his feet and arms came into the hospital for further evaluation and intervention and treatment Objective - Vital Signs Vital signs: Vital Signs Temp 98.4 F 12/26/20 10:00 Pulse 112 H 12/26/20 10:00 Resp 18 12/26/20 10:00 BP 163/94 12/26/20 10:00 Pulse Ox 96 12/26/20 10:00 Intake & Output 12/25/20 12/26/20 12/26/20 18:59 06:59 18:59 Output Total 600 250 200 Balance -600 -250 -200 Output: Urine 600 250 200 - Exam - Constitutional General appearance: disheveled, mild distress - EENT Eyes: PERRLA Ears: bilateral: normal - Neck Carotids: bilateral: upstroke normal - Respiratory Respiratory: bilateral: CTA - Cardiovascular Rhythm: regular Heart sounds: normal: S1, S2 - Gastrointestinal General gastrointestinal: normal bowel sounds, soft - Neurologic Neurologic: CNII-XII intact - Musculoskeletal Musculoskeletal: gait normal, generalized weakness, strength equal bilaterally - Psychiatric Psychiatric: A&O x's 3, appropriate affect, intact judgment & insight - Labs CBC & Chem 7: 12/26/20 04:44 12/26/20 04:44 Labs: Abnormal Lab Results - Last 24 Hours (Table) 12/25/20 12/26/20 Range/Units 11:47 04:44 Sodium 136 L (137-145) mmol/L BUN 28 H (9-20) mg/dL Hemoglobin A1c 6.1 H (4.0-6.0) % AST 138 H (17-59) U/L ALT 228 H (4-49) U/L C-Reactive Protein 19.1 H (<10.0) mg/L Microbiology - Last 24 Hours (Table) 12/24/20 11:18 CSF Gram Stain - Preliminary Cerebral Spinal Fluid CSF Culture - Preliminary 12/22/20 11:17 Blood Culture - Preliminary Blood No Growth after 72 hours 12/22/20 11:17 Blood Culture - Preliminary Blood No Growth after 72 hours Assessment and Plan Assessment: Acute cvid 19 pneumonia Acute hypoxic respiratory failure 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
[2020-12-26 11:58] LABS: VDRL, Qualitative CSF Nonreactive (Nonreactive)
--- NOTE | 2020-12-26 12:42 | XR ---
2 view abdomen HISTORY: Constipation 2 views the abdomen on 4 images Lung bases are clear. There is no evident bowel obstruction or pneumoperitoneum. There are overlying leads. Bone mineralization is maintained. Air-filled loops of small and large bowel are noted in nond escript pattern. No pathologic calcification evident, suspect phleboliths are present in the pelvis. IMPRESSION: Nonobstructive bowel gas pattern, correlate for possible ileus, follow-up as indicated.
--- NOTE | 2020-12-26 13:42 | P.PN ---
Subjective Progress Note Date: 12/26/20 The patient was seen at bedside and he stated that he received his second dose of IVIG yesterday at. He is noting some improvement as in the the tingling has been subsiding. He also noticed some improvement in strength overall. Objective - Vital Signs Vital signs: Vital Signs Temp 98.4 F 12/26/20 10:00 Pulse 112 H 12/26/20 10:00 Resp 18 12/26/20 10:00 BP 163/94 12/26/20 10:00 Pulse Ox 96 12/26/20 10:00 Intake & Output 12/25/20 12/26/20 12/26/20 18:59 06:59 18:59 Output Total 600 250 200 Balance -600 -250 -200 Output: Urine 600 250 200 - Exam GENERAL: The patient is lying in bed and is not in acute distress. NEUROLOGICAL: Higher mental function: The patient is awake, alert, oriented to self, place and time. Patient is following commands. No aphasia and no neglect. Cranial nerves: The pupils are round, equal and reactive to light and accommo dation. Visual thompson are full to confrontation throughout. Extraocular movement is intact no nystagmus is noted. Facial sensation is normal to touch throughout. The facial strength is normal throughout. Hearing is normal bilaterally to hand rub. Tongue is midline and moved [id number] without any difficulty. No dysarthria is noted. Shoulder shrug is normal bilaterally. Motor: Gait is deferred because of patient's condition. 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 Bilateral upper extremities are 4-/5 bilaterally wihile lowers are 2-3/5 bilaterally (was able to lift bilateral legs today which is improvement compared to yesterday) while ankles are 3 bilaterally. Normal bulk. Sensation: Sensation is normal to touch throughout. Reflexes (right/left): Brachioradilis is 0-1+, triceps are 1+ bilaterally, Otherwise 0 throughout. Plantars are downgoing bilaterally. - Labs CBC & Chem 7: 12/26/20 04:44 12/26/20 04:44 Labs: Abnormal Lab Results - Last 24 Hours (Table) 12/25/20 12/26/20 Range/Units 11:47 04:44 Sodium 136 L (137-145) mmol/L BUN 28 H (9-20) mg/dL Hemoglobin A1c 6.1 H (4.0-6.0) % AST 138 H (17-59) U/L ALT 228 H (4-49) U/L C-Reactive Protein 19.1 H (<10.0) mg/L Microbiology - Last 24 Hours (Table) 12/22/20 11:17 Blood Culture - Preliminary Blood No Growth after 96 hours 12/22/20 11:17 Blood Culture - Preliminary Blood No Growth after 96 hours 12/24/20 11:18 CSF Gram Stain - Preliminary Cerebral Spinal Fluid CSF Culture - Preliminary Assessment and Plan Assessment: Generalized weakness, numbness and areflexia in a patient who is Covid 19 positive. 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 Continue IVIG, daily for 5 days (today is day 3/5). CSF: clear, colorless, 5 nucleated cells (normal), glucose 62 and protein 83 (elevated). 2. Physical therapy evaluation and treatment 3. Hemoglobin A1c: 6.1 (bordeline diabetes), vitamin B12 810 (normal), rbc folate 760 (normal). Pending vitamin B6. 4. From a neurology perspective the patient will benefit from inpatient rehab. We'll defer the rest of medical management to the primary team. The plan is discussed with the patient's nurse. Will continue to follow Giuliano Lind MD Neuro-Hospitalist Time with Patient: Less than 30
[2020-12-26] MEDS ORDERED: IMMUNE GLOBULIN (GAMMAGARD) 5 GM in EMPTY BAG 1 BAG IV ONE (15:00)
[2020-12-26] MEDS ORDERED: IMMUNE GLOBULIN (GAMMAGARD) 30 GM in EMPTY BAG 1 BAG IV ONE (15:00)
--- NOTE | 2020-12-26 20:23 | PN ---
PROGRESS NOTE DATE OF SERVICE: 12/26/2020 REASON FOR FOLLOWUP: COVID-19 infection. INTERVAL HISTORY: The patient is currently afebrile. The patient is breathing comfortably on 3 L nasal cannula. Denies having any chest pain. Cough, but not bringing up any sputum. No vomiting or abdominal pain or diarrhea. No worsening weakness to legs. PHYSICAL EXAMINATION: Blood pressure 154/96, pulse of 131, temperature of 97.6. He is 95% on 3 L nasal cannula. General description is a middle-aged male lying in bed in no distress. RESPIRATORY SYSTEM: Unlabored breathing. Clear to auscultation anteriorly. HEART: S1, S2. Regular rate and rhythm. ABDOMEN: Soft. No tenderness. EXTREMITIES: No edema of the feet. LABS: Hemoglobin is 15.3, white count 9.1, BUN of 28, creatinine 0.70. DIAGNOSTIC IMPRESSION AND PLAN: Patient with acute COVID-19 infection in this patient currently on Lovenox, dexamethasone, zinc and ascorbic acid. He has completed his remdesivir therapy. Will continue to monitor the patient closely. Continue with supportive care. MMODL / IJN: [id number] /
[2020-12-26] MEDS: REMDESIVIR 100 MG in SODIUM CHLORIDE 0.9% 250 ML IVPB SCH (22:10)
[2020-12-27 07:01] LABS: Basophils % (A) 0 %; Eosinophils % (A) 0 %; HCT 42.7 % (39.0-53.0); HGB 15.1 gm/dL (13.0-17.5); Lymphocytes % (A) 19 %; MCH 31.8 pg (25.0-35.0); MCHC 35.3 g/dL (31.0-37.0); MCV 90.1 fL (80.0-100.0); Mean Platelet Volume 7.1; Monocytes # (A) 0.6 k/uL (0-1.0); Monocytes % (A) 6 %; Neutrophils # (A) 7.7 k/uL (1.3-7.7); Neutrophils % (A) 73 %; Platelet Count 416 k/uL (150-450); RBC 4.74 m/uL (4.30-5.90); WBC 10.5 k/uL (3.8-10.6)
[2020-12-27 07:29] LABS: ALT 168 U/L (4-49); AST 59 U/L (17-59); African American GFR (CKD) >90 (>60 ml/min/1.73 sqM); Albumin 3.7 g/dL (3.5-5.0); Albumin/Globulin Ratio 0.8; Alkaline Phosphatase 102 U/L (38-126); Anion Gap 8 mmol/L; Blood Urea Nitrogen 33 mg/dL (9-20); C Reactive Protein 18.4 mg/L (<10.0); Calcium 8.6 mg/dL (8.4-10.2); Carbon Dioxide 21 mmol/L (22-30); Chloride 106 mmol/L (98-107); Globulin 4.9 g/dL; Glucose 99 mg/dL (74-99); LDH 578 U/L (313-618); Magnesium 2.2 mg/dL (1.6-2.3); Non-African American GFR(CKD) >90 (>60 ml/min/1.73 sqM); Potassium 4.5 mmol/L (3.5-5.1); Sodium 135 mmol/L (137-145); Total Protein 8.6 g/dL (6.3-8.2)
--- NOTE | 2020-12-27 07:54 | P.PN ---
Subjective Progress Note Date: 12/27/20 Principal diagnosis: covid 19 infectionpossible covid 19 pneumonia Guillian bare syndrome 55-year-old male with significant medical history of hypertension, was admitted to the hospital with a covid-19 infection. patient received monoclonal antibody infusion on 12/20/2020-return to the hospital on 12/22/2020 with the complaint of numbness patient was started on Covid 19 cocktail. neurology was consult due to weakness in all 4 extremities cerebral spinal fluid showed elevated proteins consistent with GBS-patient continued to receive IV Ig 5 doses. Patient able to move all extremities with strength 2/5. on evaluation of the patient this a.m. patient resting comfortably in bed, patient endorses mild shortness of breath and generalized weakness. continue multidisciplinary disciplinary approach due to multiple comorbidities and disease process 12/27/2020 Evaluated patient this a.m., resting comfortably in bed. Patient has received overnight 19 cocktailinflammatory markers trending downward patient continues to receive IV Ig for GBS.patient able to move all extremities, upper extremity strength 3-4 out of 5, lower extremity strength 2 to 3 out of 5. Patient endorses a lateral lower extremity discomfort, generalized weakness, and constipation with mild nausea. X-ray of abdomen showed possible ileusMiraLAX added and Reglan to increase peristalsis. Continue multidisciplinary approach due to multiple comorbidities and disease processes Objective - Vital Signs Vital signs: Vital Signs Temp 97.6 F 12/27/20 06:21 Pulse 91 12/27/20 06:21 Resp 17 12/27/20 06:21 BP 150/81 12/27/20 06:21 Pulse Ox 95 12/27/20 06:21 Intake & Output 12/26/20 12/27/20 12/27/20 18:59 06:59 18:59 Intake Total 53.767 Output Total 400 700 Balance -346.233 -700 Intake: Intake, IV Titration 53.767 Amount Immune Globulin ( 3.767 Gammagard) 30 gm In Empty Bag 1 bag @ Per Protocol IV .Q0M ONE Rx#: [id number] Immune Globulin ( 50 Gammagard) 5 gm In Empty Bag 1 bag @ Titrate IV . Q0M ONE Rx#:[id number] Output: Urine 400 700 Other: Voiding Method Urinal # Bowel Movements 0 - Constitutional General appearance: Present: mild distress - EENT Eyes: Present: EOMI, PERRLA Ears: bilateral: normal - Neck Neck: Present: normal ROM Carotids: bilateral: upstroke normal Thyroid: bilateral: normal size - Respiratory Respiratory: bilateral: CTA (Anterior lung thompson), diminished (Posterior lung thompson) - Cardiovascular Details: Normal sinus rhythm Heart rate: 98 Rhythm: regular Heart sounds: normal: S1, S2 - Peripheral pulses radial pulse Peripheral Pulses: bilateral: Normal dorsalis pedis Peripheral Pulses: bilateral: Normal - Gastrointestinal General gastrointestinal: Present: decreased bowel sounds - Integumentary Integumentary: Present: pale - Neurologic Neurologic Comment(s): Upper extremity strength 3-4 out of 5 Lower extremity strength 2-3 out of 5 - Musculoskeletal Musculoskeletal: Present: generalized weakness - Psychiatric Psychiatric: Present: A&O x's 3, appropriate affect, intact judgment & insight - Allied health notes Allied health notes reviewed: nursing - Labs CBC & Chem 7: 12/27/20 06:16 12/27/20 06:16 Labs: Abnormal Lab Results - Last 24 Hours (Table) 12/27/20 Range/Units 06:16 Sodium 135 L (137-145) mmol/L Carbon Dioxide 21 L (22-30) mmol/L BUN 33 H (9-20) mg/dL ALT 168 H (4-49) U/L C-Reactive Protein 18.4 H (<10.0) mg/L Total Protein 8.6 H (6.3-8.2) g/dL Microbiology - Last 24 Hours (Table) 12/22/20 11:17 Blood Culture - Preliminary Blood No Growth after 96 hours 12/22/20 11:17 Blood Culture - Preliminary Blood No Growth after 96 hours 12/24/20 11:18 CSF Gram Stain - Preliminary Cerebral Spinal Fluid CSF Culture - Preliminary - Imaging and Cardiology Chest x-ray: report reviewed Abdominal x-ray: report reviewed Assessment and Plan Assessment: Acute covid-19 pneumoniacontinue Covid cocktailcontinue consultation with pulmonary critical care Acute hypoxic respiratory failure-continue consultation with pulmonary critical care GBS-continue consultation with neurology for expert opinion and continue IVIG Hypertension CT of the chest showed pulmonary nodules 0.5 follow-up outpatient Ileusadded MiraLAX and Reglan to increase peristalsis Cardiovascular disease Possible COPDformer smoker Current illicit drug use of marijuana Full code Plan: Covid 19 [id number] Lovenox and IV Decadron, and REMDESIVIR-consul tation with pulmonary critical care for recommendations and treatment plan [place] Mendez syndromecontinue consultation with neurology in continue IVIG Ileusadded MiraLAX and Reglan to increase peristalsis Hypertension continue home medication Acute hypoxic rest or failuresupplemental oxygen to keep saturations greater than 94 present Continue home medications Further recommendations to come based on patient's clinical condition Time with Patient: Greater than 30
[2020-12-27] MEDS: ENOXAPARIN 40 MG/0.4 ML SYRINGE SQ SCH (08:46)
[2020-12-27] MEDS: ZINC SULFATE 220 MG CAP PO SCH (08:46)
[2020-12-27] MEDS: ASCORBIC ACID 500 MG TAB PO SCH (08:47)
[2020-12-27] MEDS: CHOLECALCIFEROL 25 MCG (1000 IU) TABLET PO SCH (08:47)
[2020-12-27] MEDS: METOPROLOL TARTRATE 25 MG TAB PO SCH ×2 (08:47→20:19)
[2020-12-27] MEDS: SENNOSIDES-DOCUSATE SODIUM 1 EACH TAB PO SCH ×2 (08:47→20:19)
[2020-12-27] MEDS: ACETAMINOPHEN TAB 325 MG TAB PO PRN (08:47)
[2020-12-27] MEDS: lisinopriL 20 MG TAB PO SCH ×2 (08:47→20:19)
[2020-12-27] MEDS: METOCLOPRAMIDE 5 MG/ML 2 ML VIAL IVP SCH ×3 (08:48→16:55)
[2020-12-27] MEDS: DEXAMETHASONE SOD PHOSPHATE 10 MG/ML 1 ML VIAL IV SCH (08:48)
[2020-12-27] MEDS: polyethylene glycoL 3350 17 GM POWD.PACK PO SCH (08:48)
--- NOTE | 2020-12-27 11:19 | P.PN ---
Subjective Progress Note Date: 12/27/20 Principal diagnosis: Acute covid 19 pneumonia Acute hypoxic respiratory failure symmetric neuropathy Bilateral symmetrical numbness of the extremities Hypertension hypertensive cardiovascular disease Likely baseline COPD 12/27/2020, patient seen eval examined during the rounds labs reviewed medications reviewed, patient is down to 2 L nasal cannula respiratory status continued to improve, patient is getting IVIG 2 day therapies left numbness in the extremity significantly improved patient is now having some sensation now 12/26/2020, patient seen eval examined during the rounds labs reviewed medications reviewed in respiratory status is stable on 3 drug oxygen continue to get an infusion therapy, post therapy likely will be placed in rehab, cough congestion shortness of breath improved patient remains on therapy for covert pneumonia 12/25/2020, patient seen eval examined during the rounds labs reviewed medications reviewed, patient is on IV IgG infusion, numbness slightly better remains on 3 L oxygen cough congestion shortness of breath stable, 12/24/2020, patient seen eval examined during the rounds status 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, patient is still have numbness in the extremities, overall remains stable however shortness of breath stable, patient is on therapy for Coreg 19 pneumonia along with supplemental oxygen, preliminary results of the spinal tap his bag patient has elevated total protein of 83 in the CSF, duplex ultrasound of the lower extremity negative for DVT, 12/23/2020, patient seen eval examined during the rounds labs reviewed medications reviewed care plan discussed, shortness of breath still there intermittent cough is present neurology is evaluating this patient suspecting Guillain-Mendez syndrome patients to get a spinal tap, however will caution attempt due to being on Lovenox need to stop 12 hour before, patient received a dose of IV REMdesivir 200 mg yesterday we'll continue it 100 mg IV for 4 more days This is a 55-year-old male with history of smoking 3 packs per day lately has h owever has been not smoking, patient came into the hospital due to numbness in all 4 extremity, patient was diagnosed as the cord 19 pneumonia about a week ago with symptoms onset, has been more short of breath lately, patient did present in the ER previously for monoclonal IV antibody therapy after that he started having numbness in his feet and arms came into the hospital for further evaluation and intervention and treatment Objective - Vital Signs Vital signs: Vital Signs Temp 97.5 F L 12/27/20 09:36 Pulse 103 H 12/27/20 09:36 Resp 18 12/27/20 09:36 BP 156/87 12/27/20 09:36 Pulse Ox 96 12/27/20 09:36 Intake & Output 12/26/20 12/27/20 12/27/20 18:59 06:59 18:59 Intake Total 53.767 Output Total 400 700 Balance -346.233 -700 Intake: Intake, IV Titration 53.767 Amount Immune Globulin ( 3.767 Gammagard) 30 gm In Empty Bag 1 bag @ Per Protocol IV .Q0M ONE Rx#: [id number] Immune Globulin ( 50 Gammagard) 5 gm In Empty Bag 1 bag @ Titrate IV . Q0M ONE Rx#:[id number] Output: Urine 400 700 Other: Voiding Method Urinal Urinal # Bowel Movements 0 - Exam - Constitutional General appearance: disheveled, mild distress - EENT Eyes: PERRLA Ears: bilateral: normal - Neck Carotids: bilateral: upstroke normal - Respiratory Respiratory: bilateral: CTA - Cardiovascular Rhythm: regular Heart sounds: normal: S1, S2 - Gastrointestinal General gastrointestinal: normal bowel sounds, soft - Neurologic Neurologic: CNII-XII intact - Musculoskeletal Musculoskeletal: gait normal, generalized weakness, strength equal bilaterally - Psychiatric Psychiatric: A&O x's 3, appropriate affect, intact judgment & insight - Labs CBC & Chem 7: 12/27/20 06:16 12/27/20 06:16 Labs: Abnormal Lab Results - Last 24 Hours (Table) 12/27/20 Range/Units 06:16 Sodium 135 L (137-145) mmol/L Carbon Dioxide 21 L (22-30) mmol/L BUN 33 H (9-20) mg/dL ALT 168 H (4-49) U/L C-Reactive Protein 18.4 H (<10.0) mg/L Total Protein 8.6 H (6.3-8.2) g/dL Microbiology - Last 24 Hours (Table) 12/22/20 11:17 Blood Culture - Preliminary Blood No Growth after 96 hours 12/22/20 11:17 Blood Culture - Preliminary Blood No Growth after 96 hours 12/24/20 11:18 CSF Gram Stain - Preliminary Cerebral Spinal Fluid CSF Culture - Preliminary Assessment and Plan Assessment: Acute cvid 19 pneumonia Acute hypoxic respiratory failure 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
--- NOTE | 2020-12-27 13:03 | P.PN ---
Subjective Progress Note Date: 12/27/20 Patient was seen at bedside and he stated that he is doing drastically better today compared to initial presentation. He said that he doesn't have any further tingling and in the lower extremity and he feels he is having no sensation as well. He feels the strength schafer he is improving slowly but better than the initial presentation and he is working with physical therapy and occupation therapy and they feel like he is improving as well. He denies any worsening of his condition. Today's is day#4 for IVIG out of 5. Objective - Vital Signs Vital signs: Vital Signs Temp 97.5 F L 12/27/20 09:36 Pulse 103 H 12/27/20 09:36 Resp 18 12/27/20 09:36 BP 156/87 12/27/20 09:36 Pulse Ox 95 12/27/20 11:45 Intake & Output 12/26/20 12/27/20 12/27/20 18:59 06:59 18:59 Intake Total 53.767 Output Total 400 700 Balance -346.233 -700 Intake: Intake, IV Titration 53.767 Amount Immune Globulin ( 3.767 Gammagard) 30 gm In Empty Bag 1 bag @ Per Protocol IV .Q0M ONE Rx#: [id number] Immune Globulin ( 50 Gammagard) 5 gm In Empty Bag 1 bag @ Titrate IV . Q0M ONE Rx#:[id number] Output: Urine 400 700 Other: Voiding Method Urinal Urinal # Bowel Movements 0 - Exam GENERAL: The patient is lying in bed and is not in acute distress. NEUROLOGICAL: Higher mental function: The patient is awake, alert, oriented to self, place and time. Patient is following commands. No aphasia and no neglect. Cranial nerves: The pupils are round, equal and reactive to light and accommodation. Visual thompson are full to confrontation throughout. Extraocular movement is intact no nystagmus is noted. Facial sensation is normal to touch throughout. The facial strength is normal throughout. Hearing is normal bilaterally to hand rub. Tongue is midline and moved [id number] without any difficulty. No dysarthria is noted. Shoulder shrug is normal bilaterally. Motor: Gait is deferred because of patient's condition. The strength is bilateral hand orthopaedic technologist is 3-4/5. Bilateral upper extremities are 4-/5 bilaterally wihile lowers are 2-3/5 bilaterally (was able to lift bilateral legs today which is improvement compared to yesterday) while ankles are 3 bilaterally. Normal bulk. Sensation: Sensation is normal to touch throughout. Reflexes (right/left): Brachioradilis is 0-1+, triceps are 1+ bilaterally, Otherwise 0 throughout. Plantars are downgoing bilaterally. - Labs CBC & Chem 7: 12/27/20 06:16 12/27/20 06:16 Labs: Abnormal Lab Results - Last 24 Hours (Table) 12/27/20 Range/Units 06:16 Sodium 135 L (137-145) mmol/L Carbon Dioxide 21 L (22-30) mmol/L BUN 33 H (9-20) mg/dL Ferritin 438.0 H (22.0-322.0) ng/mL ALT 168 H (4-49) U/L C-Reactive Protein 18.4 H (<10.0) mg/L Total Protein 8.6 H (6.3-8.2) g/dL Microbiology - Last 24 Hours (Table) 12/24/20 11:18 CSF Gram Stain - Preliminary Cerebral Spinal Fluid CSF Culture - Preliminary 12/22/20 11:17 Blood Culture - Preliminary Blood No Growth after 96 hours 12/22/20 11:17 Blood Culture - Preliminary Blood No Growth after 96 hours Assessment and Plan Assessment: Generalized weakness, numbness and areflexia in a patient who is Covid 19 positive. 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 Continue IVIG, daily for 5 days (today is day 4/5). CSF: clear, colorless, 5 nucleated cells (normal), glucose 62 and protein 83 (elevated). 2. Physical therapy evaluation and treatment 3. Hemoglobin A1c: 6.1 (bordeline diabetes), vitamin B12 810 (normal), rbc folate 760 (normal). Pending vitamin B6. 4. From a neurology perspective the patient will benefit from inpatient rehab. We'll defer the rest of medical management to the primary team. The plan is discussed with the patient's nurse. Will continue to follow Giuliano Lind MD Neuro-Hospitalist Time with Patient: Less than 30
[2020-12-27] MEDS ORDERED: IMMUNE GLOBULIN (GAMMAGARD) 5 GM in EMPTY BAG 1 BAG IV ONE (15:00)
[2020-12-27] MEDS ORDERED: IMMUNE GLOBULIN (GAMMAGARD) 30 GM in EMPTY BAG 1 BAG IV ONE (15:00)
--- NOTE | 2020-12-27 17:51 | PN ---
PROGRESS NOTE DATE OF SERVICE: 12/27/2020 REASON FOR FOLLOWUP: COVID-19 pneumonia. INTERVAL HISTORY: The patient is currently afebrile. The patient is breathing comfortably. The patient denies having any chest pain or shortness of breath. Occasional cough. No abdominal pain. Overall lower extremity pain has improved. PHYSICAL EXAMINATION: Blood pressure 131/84, pulse of 113, temperature 97.5. He is 96% on 2 L nasal cannula. General description is a middle-aged male lying in bed in no distress. RESPIRATORY SYSTEM: Unlabored breathing. Clear to auscultation anteriorly. HEART: S1, S2. Regular rate and rhythm. ABDOMEN: Soft. No tenderness. LABS: Hemoglobin 16.1, white count 10.5, BUN of 33, creatinine 0.74. DIAGNOSTIC IMPRESSION AND PLAN: Patient with acute COVID-19 infection in this patient currently on Lovenox, dexamethasone, zinc and ascorbic acid. He has completed his 5-day course of remdesivir. Monitor clinical course closely. MMODL / IJN: [id number] /
[2020-12-28] MEDS: METOCLOPRAMIDE 5 MG/ML 2 ML VIAL IVP SCH ×4 (00:45→15:56)
[2020-12-28] MEDS: ACETAMINOPHEN TAB 325 MG TAB PO PRN (05:43)
--- NOTE | 2020-12-28 08:13 | P.PN ---
Subjective Progress Note Date: 12/28/20 Principal diagnosis: covid 19 infectionpossible covid 19 pneumonia Guillian bare syndrome 55-year-old male with significant medical history of hypertension, was admitted to the hospital with a covid-19 infection. patient received monoclonal antibody infusion on 12/20/2020-return to the hospital on 12/22/2020 with the complaint of numbness patient was started on Covid 19 cocktail. neurology was consult due to weakness in all 4 extremities cerebral spinal fluid showed elevated proteins consistent with GBS-patient continued to receive IV Ig 5 doses. Patient able to move all extremities with strength 2/5. on evaluation of the patient this a.m. patient resting comfortably in bed, patient endorses mild shortness of breath and generalized weakness. continue multidisciplinary disciplinary approach due to multiple comorbidities and disease process 12/27/2020 Evaluated patient this a.m., resting comfortably in bed. Patient has received covid19 cocktailinflammatory markers trending downward patient continues to receive IV Ig for GBS.patient able to move all extremities, upper extremity strength 3-4 out of 5, lower extremity strength 2 to 3 out of 5. Patient endorses a lateral lower extremity discomfort, generalized weakness, and constipation with mild nausea. X-ray of abdomen showed possible ileusMiraLAX added and Reglan to increase peristalsis. Continue multidisciplinary approach due to multiple comorbidities and disease processes 12/28/2020 Evaluated patient this a.m., resting comfortably in bed. Patient has received remdesivir, Decadron, Lovenox and vitamin supplements for Covid 19 infectionpatient inflammatory markers have downward trend, and responding to treatment wellpatient denies any shortness of breath, cough, fever or chills. Patient is treatment for [place] Mendez syndromeIVIGpatient has responded wellpatient's upper extremity strength 4-5 out of 5, lower extremity strength 3-5 out of 5. Patient able to move all extremities without pain or discomfort at this time. Patient progressing well with occupational and physical therapypatient a great candidate for [facility] rehab. continue multidisciplinary approach due to multiple comorbidities and disease process Objective - Vital Signs Vital signs: Vital Signs Temp 97.4 F L 12/28/20 05:30 Pulse 101 H 12/28/20 05:30 Resp 16 12/28/20 05:30 BP 162/88 12/28/20 05:30 Pulse Ox 93 L 12/28/20 05:30 Intake & Output 12/27/20 12/28/20 12/28/20 18:59 06:59 18:59 Output Total 850 Balance -850 Output: Urine 850 Other: Voiding Method Urinal Urinal # Bowel Movements 0 - Constitutional General appearance: Present: cooperative, mild distress - EENT Eyes: Present: PERRLA Ears: bilateral: normal - Neck Neck: Present: normal ROM Carotids: bilateral: upstroke normal Thyroid: bilateral: normal size - Respiratory Respiratory: bilateral: CTA (Anterior and posterior lung thompson) - Cardiovascular Details: Normal sinus rhythm Heart rate: 94 Rhythm: regular Heart sounds: normal: S1, S2 - Peripheral pulses radial pulse Peripheral Pulses: bilateral: Normal dorsalis pedis Peripheral Pulses: bilateral: Normal - Gastrointestinal General gastrointestinal: Present: normal bowel sounds - Integumentary Integumentary: Present: normal - Neurologic Neurologic Comment(s): Upper extremity strength 4-5 out of 5 Lower extremities strength 3-5 out of 5 Sensation of upper and lower extremities at baseline - Musculoskeletal Musculoskeletal: Present: generalized weakness - Psychiatric Psychiatric: Present: A&O x's 3, appropriate affect, intact judgment & insight - Allied health notes Allied health notes reviewed: nursing - Labs CBC & Chem 7: 12/27/20 06:16 12/27/20 06:16 Labs: Abnormal Lab Results - Last 24 Hours (Table) 12/27/20 Range/Units 06:16 Ferritin 438.0 H (22.0-322.0) ng/mL Microbiology - Last 24 Hours (Table) 12/22/20 11:17 Blood Culture - Preliminary Blood No Growth after 120 hours 12/22/20 11:17 Blood Culture - Preliminary Blood No Growth after 120 hours 12/24/20 11:18 CSF Gram Stain - Preliminary Cerebral Spinal Fluid CSF Culture - Preliminary - Imaging and Cardiology Chest x-ray: image reviewed Assessment and Plan Assessment: Acute covid-19 pneumoniacontinue Covid cocktailcontinue consultation with pulmonary critical care Acute hypoxic respiratory failure-continue consultation with pulmonary critical care GBS-continue consultation with neurology for expert opinion and continue IVIG Hypertension CT of the chest showed pulmonary nodules 0.5 follow-up outpatient Ileusadded MiraLAX and Reglan to increase peristalsis Cardiovascular disease Possible COPDformer smoker Current illicit drug use of marijuana Full code Plan: Covid 19 [id number] Lovenox and IV Decadron, and REMDESIVIR- consultation with pulmonary critical care for recommendations and treatment plan [place] Mendez syndromecontinue consultation with neurology in continue IVIGcontinue occupational physical therapy Ileusadded MiraLAX and Reglan to increase peristalsis Hypertension continue home medication Acute hypoxic rest or failuresupplemental oxygen to keep saturations greater than 94 present Continue home medications Further recommendations to come based on patient's clinical condition Hopeful discharge [facility] and rehab tomorrow Time with Patient: Greater than 30
--- NOTE | 2020-12-28 08:24 | XR ---
EXAMINATION TYPE: XR chest 1V portable DATE OF EXAM: 12/28/2020 CLINICAL HISTORY: Difficulty breathing progress study. TECHNIQUE: Single AP portable upright view of the chest is obtained. COMPARISON: Chest x-ray from 2 days earlier. Chest x-ray and CTA chest 6 days earlier. FINDINGS: Bilateral chronic parenchymal changes with peripheral right midlung and scattered bibasila r opacities remaining present. Cardiac silhouette size is stable and upper limits of normal. Osseous structures are intact. IMPRESSION: Chronic changes with patchy bilateral lower lung opacities in lateral right midlung opaci ty, no significant change from most recent x-ray. Findings consistent with covid-19 infection.
[2020-12-28] MEDS: METOPROLOL TARTRATE 25 MG TAB PO SCH ×2 (09:02→21:03)
[2020-12-28] MEDS: SENNOSIDES-DOCUSATE SODIUM 1 EACH TAB PO SCH ×2 (09:02→21:03)
[2020-12-28] MEDS: ZINC SULFATE 220 MG CAP PO SCH (09:02)
[2020-12-28] MEDS: lisinopriL 20 MG TAB PO SCH ×2 (09:02→21:03)
[2020-12-28] MEDS: CHOLECALCIFEROL 25 MCG (1000 IU) TABLET PO SCH (09:02)
[2020-12-28] MEDS: ENOXAPARIN 40 MG/0.4 ML SYRINGE SQ SCH (09:02)
[2020-12-28] MEDS: ASCORBIC ACID 500 MG TAB PO SCH (09:02)
[2020-12-28] MEDS: DEXAMETHASONE SOD PHOSPHATE 10 MG/ML 1 ML VIAL IV SCH (09:03)
[2020-12-28] MEDS: polyethylene glycoL 3350 17 GM POWD.PACK PO SCH (09:03)
[2020-12-28 09:32] LABS: Basophils % (A) 0 %; Eosinophils # (A) 0.1 k/uL (0-0.7); Eosinophils % (A) 1 %; HCT 41.2 % (39.0-53.0); HGB 14.4 gm/dL (13.0-17.5); Lymphocytes # (A) 1.6 k/uL (1.0-4.8); Lymphocytes % (A) 16 %; MCH 31.4 pg (25.0-35.0); MCV 89.7 fL (80.0-100.0); Monocytes # (A) 0.5 k/uL (0-1.0); Monocytes % (A) 5 %; Neutrophils % (A) 78 %; Platelet Count 363 k/uL (150-450); RDW 13.2 % (11.5-15.5); WBC 10.3 k/uL (3.8-10.6)
[2020-12-28 12:07] LABS: ALT 125 U/L (4-49); AST 48 U/L (17-59); African American GFR (CKD) >90 (>60 ml/min/1.73 sqM); Albumin 3.7 g/dL (3.5-5.0); Albumin/Globulin Ratio 0.7; Alkaline Phosphatase 102 U/L (38-126); Anion Gap 11 mmol/L; Blood Urea Nitrogen 34 mg/dL (9-20); C Reactive Protein 18.2 mg/L (<10.0); Calcium 9.1 mg/dL (8.4-10.2); Carbon Dioxide 23 mmol/L (22-30); Chloride 103 mmol/L (98-107); Globulin 5.1 g/dL; Glucose 156 mg/dL (74-99); Magnesium 2.1 mg/dL (1.6-2.3); Non-African American GFR(CKD) >90 (>60 ml/min/1.73 sqM); Potassium 4.4 mmol/L (3.5-5.1); Sodium 137 mmol/L (137-145); Total Bilirubin 1.1 mg/dL (0.2-1.3); Total Protein 8.8 g/dL (6.3-8.2)
[2020-12-28 12:46] LABS: LDH 584 U/L (313-618)
[2020-12-28 14:46] VITALS: BMI 31.6
[2020-12-28] MEDS ORDERED: IMMUNE GLOBULIN (GAMMAGARD) 5 GM in EMPTY BAG 1 BAG IV ONE (15:00)
[2020-12-28] MEDS ORDERED: IMMUNE GLOBULIN (GAMMAGARD) 30 GM in EMPTY BAG 1 BAG IV ONE (15:00)
--- NOTE | 2020-12-28 15:12 | P.PN ---
Subjective Progress Note Date: 12/28/20 He was seen at bedside and that he stated that he feels about the same today compared to yesterday. Today is day #5 of IVIG and he will get it later today. Otherwise he denies any worsening of his neurological condition. He did acknowledge that since he's been getting IVIG he's been feeling much better s pradip his initial presentation. Objective - Vital Signs Vital signs: Vital Signs Temp 97.6 F 12/28/20 09:33 Pulse 124 H 12/28/20 09:33 Resp 18 12/28/20 09:33 BP 135/87 12/28/20 09:33 Pulse Ox 97 12/28/20 09:33 Intake & Output 12/27/20 12/28/20 12/28/20 18:59 06:59 18:59 Intake Total 340 Output Total 850 Balance -850 340 Weight 102.965 kg Intake: Oral 340 Output: Urine 850 Other: Voiding Method Urinal Urinal # Bowel Movements 0 1 - Exam GENERAL: The patient is lying in bed and is not in acute distress. NEUROLOGICAL: Higher mental function: The patient is awake, alert, oriented to self, place and time. Patient is following commands. No aphasia and no neglect. Cranial nerves: The pupils are round, equal and reactive to light and accommodation. Visual thompson are full to confrontation throughout. Extraocular movement is intact no nystagmus is noted. Facial sensation is normal to touch throughout. The facial strength is normal throughout. Hearing is normal bilaterally to hand rub. Tongue is midline and moved [id number] without any difficulty. No dysarthria is noted. Shoulder shrug is normal bilaterally. Motor: Gait is deferred because of patient's condition. The strength is bilateral hand flight communications operator is 3-4/5. Bilateral upper extremities are 4+/5 bilaterally wihile lowers proximal are 3/5 bilaterally while distally are 4-/5 bilaterally. Normal bulk. Sensation: Sensation is normal to touch throughout. Reflexes (right/left): Brachioradilis is 0-1+, triceps are 1+ bilaterally, Otherwise 0 throughout. Plantars are downgoing bilaterally. - Labs CBC & Chem 7: 12/28/20 08:55 12/28/20 08:55 Labs: Abnormal Lab Results - Last 24 Hours (Table) 12/28/20 12/28/20 Range/Units 08:55 08:55 Neutrophils # 8.0 H (1.3-7.7) k/uL BUN 34 H (9-20) mg/dL Glucose 156 H (74-99) mg/dL ALT 125 H (4-49) U/L C-Reactive Protein 18.2 H (<10.0) mg/L Total Protein 8.8 H (6.3-8.2) g/dL Microbiology - Last 24 Hours (Table) 12/22/20 11:17 Blood Culture - Final Blood No Growth after 144 hours 12/22/20 11:17 Blood Culture - Final Blood No Growth after 144 hours 12/24/20 11:18 CSF Gram Stain - Final Cerebral Spinal Fluid CSF Culture - Final Assessment and Plan Assessment: Generalized weakness, numbness and areflexia in a patient who is Covid 19 positive. CSF positive for Guillain-Mendez syndrome, with elevated protein and normal white count---condition is improving since initial presentation Acute Covid 19 pneumonia Acute hypoxic respiratory of due to acute Covid 19 pneumonia Hypertension Bordeline diabetes (HbA1c 6.1) History of COPD Plan: 1. Continue IVIG, daily for 5 days (today is day 01/17). CSF: clear, colorless, 5 nucleated cells (normal), glucose 62 and protein 83 (elevated). 2. Physical therapy evaluation and treatment 3. Hemoglobin A1c: 6.1 (bordeline diabetes), vitamin B12 810 (normal), rbc folate 760 (normal). Pending vitamin B6. 4. From a neurology perspective the patient will benefit from inpatient rehab. Per the patient's nurse possibly [facility] inpatient rehab. The plan is discussed with the patient's nurse. We'll defer the rest of medical management to the primary team. Will continue to follow Giuliano Lind MD Neuro-Hospitalist Time with Patient: Less than 30
--- NOTE | 2020-12-28 15:14 | P.PN ---
Subjective Progress Note Date: 12/28/20 Principal diagnosis: Acute covid 19 pneumonia Acute hypoxic respiratory failure symmetric neuropathy Bilateral symmetrical numbness of the extremities Hypertension hypertensive cardiovascular disease Likely baseline COPD 12/28/2020, patient seen eval examined during the rounds labs reviewed medications reviewed numbness in the extremity continued to improve one more day of IVIG therapies left, oxygen is tapered down to 2 L nasal cannula, n chest x- ray shows parenchymal changes and scattered bilateral interstitial infiltrate consistent with COVID-19 pneumonia 12/27/2020, patient seen eval examined during the rounds labs reviewed medications reviewed, patient is down to 2 L nasal cannula respiratory status continued to improve, patient is getting IVIG 2 day therapies left numbness in the extremity significantly improved patient is now having some sensation now 12/26/2020, patient seen eval examined during the rounds labs reviewed medications reviewed in respiratory status is stable on 3 drug oxygen continue to get an infusion therapy, post therapy likely will be placed in rehab, cough congestion shortness of breath improved patient remains on therapy for covert pneumonia 12/25/2020, patient seen eval examined during the rounds labs reviewed medications reviewed, patient is on IV IgG infusion, numbness slightly better remains on 3 L oxygen cough congestion shortness of breath stable, 12/24/2020, patient seen eval examined during the rounds status 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, patient is still have numbness in the extremities, overall remains stable however shortness of breath stable, patient is on therapy for Coreg 19 pneumonia along with supplemental oxygen, preliminary results of the spinal tap his bag patient has elevated total protein of 83 in the CSF, duplex ultrasound of the lower extremity negative for DVT, 12/23/2020, patient seen eval examined during the rounds labs reviewed medications reviewed care plan discussed, shortness of breath still there intermittent cough is present neurology is evaluating this patient suspecting Guillain-Mendez syndrome patients to get a spinal tap, however will caution attempt due to being on Lovenox need to stop 12 hour before, patient received a dose of IV REMdesivir 200 mg yesterday we'll continue it 100 mg IV for 4 more days This is a 55-year-old male with history of smoking 3 packs per day lately has however has been not smoking, patient came into the hospital due to numbness in all 4 extremity, patient was diagnosed as the cord 19 pneumonia about a week ago with symptoms onset, has been more short of breath lately, patient did present in the ER previously for monoclonal IV antibody therapy after that he started having numbness in his feet and arms came into the hospital for further evaluation and intervention and treatment Objective - Vital Signs Vital signs: Vital Signs Temp 97.6 F 12/28/20 09:33 Pulse 124 H 12/28/20 09:33 Resp 18 12/28/20 09:33 BP 135/87 12/28/20 09:33 Pulse Ox 97 12/28/20 09:33 Intake & Output 12/27/20 12/28/20 12/28/20 18:59 06:59 18:59 Intake Total 340 Output Total 850 Balance -850 340 Weight 102.965 kg Intake: Oral 340 Output: Urine 850 Other: Voiding Method Urinal Urinal # Bowel Movements 0 1 - Exam - Constitutional General appearance: disheveled, mild distress - EENT Eyes: PERRLA Ears: bilateral: normal - Neck Carotids: bilateral: upstroke normal - Respiratory Respiratory: bilateral: CTA - Cardiovascular Rhythm: regular Heart sounds: normal: S1, S2 - Gastrointestinal General gastrointestinal: normal bowel sounds, soft - Neurologic Neurologic: CNII-XII intact - Musculoskeletal Musculoskeletal: gait normal, generalized weakness, strength equal bilaterally - Psychiatric Psychiatric: A&O x's 3, appropriate affect, intact judgment & insight - Labs CBC & Chem 7: 12/28/20 08:55 12/28/20 08:55 Labs: Abnormal Lab Results - Last 24 Hours (Table) 12/28/20 12/28/20 Range/Units 08:55 08:55 Neutrophils # 8.0 H (1.3-7.7) k/uL BUN 34 H (9-20) mg/dL Glucose 156 H (74-99) mg/dL ALT 125 H (4-49) U/L C-Reactive Protein 18.2 H (<10.0) mg/L Total Protein 8.8 H (6.3-8.2) g/dL Microbiology - Last 24 Hours (Table) 12/22/20 11:17 Blood Culture - Final Blood No Growth after 144 hours 12/22/20 11:17 Blood Culture - Final Blood No Growth after 144 hours 12/24/20 11:18 CSF Gram Stain - Final Cerebral Spinal Fluid CSF Culture - Final Assessment and Plan Assessment: Acute cvid 19 pneumonia Acute hypoxic respiratory failure 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
--- NOTE | 2020-12-28 15:30 | PN ---
PROGRESS NOTE DATE OF SERVICE: 12/28/2020 REASON FOR FOLLOWUP: COVID-19 pneumonia. INTERVAL HISTORY: The patient is afebrile. The patient is breathing comfortably, currently on 2 L nasal cannula. The patient denies having any chest pain or shortness of breath. Occasional cough. No abdominal pain or diarrhea. Leg weakness has improved. PHYSICAL EXAMINATION: Blood pressure 135/87, pulse 124, temperature 97.6. He is 97% on 2 L nasal cannula. General description is a middle-aged male up in the bed in no distress. RESPIRATORY SYSTEM: Unlabored breathing with decreased intensity of breath sounds. No wheeze. HEART: S1, S2. Regular rate and rhythm. ABDOMEN: Soft. No tenderness. LABS: Hemoglobin is 14.4, white count 10.3, BUN of 34, creatinine 0.78. DIAGNOSTIC IMPRESSION AND PLAN: Patient with acute COVID-19 pneumonia. Patient has shown overall clinical improvement. The patient has completed his remdesivir therapy, on dexamethasone, Lovenox, zinc and ascorbic acid; to continue, monitoring his clinical course closely. Continue supportive care. MMODL / IJN: [id number] /
[2020-12-29] MEDS: METOCLOPRAMIDE 5 MG/ML 2 ML VIAL IVP SCH ×3 (01:07→17:31)
[2020-12-29 04:16] LABS: Ferritin 436.6 ng/mL (22.0-322.0)
[2020-12-29] MEDS: CHOLECALCIFEROL 25 MCG (1000 IU) TABLET PO SCH (08:26)
[2020-12-29] MEDS: METOPROLOL TARTRATE 25 MG TAB PO SCH (08:26)
[2020-12-29] MEDS: DEXAMETHASONE SOD PHOSPHATE 10 MG/ML 1 ML VIAL IV SCH (08:26)
[2020-12-29] MEDS: ASCORBIC ACID 500 MG TAB PO SCH (08:26)
[2020-12-29] MEDS: ZINC SULFATE 220 MG CAP PO SCH (08:26)
[2020-12-29] MEDS: ENOXAPARIN 40 MG/0.4 ML SYRINGE SQ SCH (08:26)
[2020-12-29] MEDS: lisinopriL 20 MG TAB PO SCH (08:26)
[2020-12-29] MEDS: polyethylene glycoL 3350 17 GM POWD.PACK PO SCH (08:27)
[2020-12-29 11:24] LABS: ALT 108 U/L (4-49); AST 54 U/L (17-59); African American GFR (CKD) >90 (>60 ml/min/1.73 sqM); Albumin 3.9 g/dL (3.5-5.0); Albumin/Globulin Ratio 0.7; Alkaline Phosphatase 105 U/L (38-126); Anion Gap 8 mmol/L; Blood Urea Nitrogen 36 mg/dL (9-20); Calcium 8.8 mg/dL (8.4-10.2); Carbon Dioxide 26 mmol/L (22-30); Chloride 102 mmol/L (98-107); Globulin 5.5 g/dL; Glucose 94 mg/dL (74-99); Non-African American GFR(CKD) >90 (>60 ml/min/1.73 sqM); Potassium 4.4 mmol/L (3.5-5.1); Sodium 136 mmol/L (137-145); Total Bilirubin 1.3 mg/dL (0.2-1.3); Total Protein 9.4 g/dL (6.3-8.2)
--- NOTE | 2020-12-29 14:19 | P.DS ---
Providers Date of admission: 12/22/20 14:07 Expected date of discharge: 12/29/20 Attending physician: Jaret Salomon Consults: 12/22/20 14:16 Consult Physician Urgent Consulting Provider: Nj Perez Consult Reason/Comments: Covid pneumonia, hypoxia Do you want consulting provider notified?: Yes 12/22/20 17:59 Consult Physician Routine Consulting Provider: Jena Tejeda Consult Reason/Comments: neuropathy Do you want consulting provider notified?: Yes 12/23/20 14:25 Consult to Anesthesia Stat Consulting Provider: Anesthesia,Services Consult Reason/Comments: lumbar puncture 12/23/20 14:45 Consult Physician Routine Consulting Provider: Latanya Sandoval Consult Reason/Comments: covid Do you want consulting provider notified?: Yes 12/25/20 20:08 Consult Physician Routine Consulting Provider: Calvin Victor Consult Reason/Comments: GBS, need evaluation for inpatissm rehab rehab Do you want consulting provider notified?: Yes Primary care physician: Jaret Salomon Hospital Course: 55-year-old male with significant medical history of hypertension was admitted to the hospital with a Covid 19 infection. he received monoclonal antibody infusion on 12/20/2020; patient return to the hospital on 12/22/2020 to complaint of numbness in the upper extremities and tingling, additional he had elevated inflammatory markers received Covid 19 cocktail of Lovenox, Decadron IV, vitamin C, vitamin D, zinc and a 5 day course of remdesivir. Throughout admission patient was noted to have weakness in all 4 extremities; neurology was consult lumbar puncture was performed elevated proteins in the CSF fluid with consistent of patient's condition diagnosis of [place] Mendez syndrome was diagnosed;patient received 5 day course of immunoglobulin therapy and physical therapy and occupational therapy with increase strength and sensation. Patient has 4 out of 5 strength upper extremities and 3 out of 5 lower extremities. upon discharge able to move throughout bed and 2 person assist. Patient will require 2 L of oxygen upon discharge to inpatient rehab at [facility] to be titrated down Patient to great candidate for [facility] inpatient rehab to regain strength from Covid 19 infection secondary [place] Mendez syndrome. [facility] will cover her patient during stay during [facility]'s admission. 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 Hypertension Pulmonary nodule 0.5 follow-up on outpatient basis Cardiovascular disease Probable COPD History of illicit drug use of marijuana Full code Health Concerns: [place] Mendez syndrome with weakness noted but improvement during hospital stay with immunoglobulin therapy Pertinent Studies: Serial chest x-raysconsisting of Covid 19 pneumonia Echocardiogramnormal ejection fraction CTA of the chestpulmonary nodule found CT of the headno acute findings Abdominal x-rayprobable ileus Procedures: By puncture performed finding elevated proteins consistent with [place] Mendez syndrome with clinical condition Patient Condition at Discharge: Stable Plan - Discharge Summary Discharge Rx Participant: Yes New Discharge Prescriptions: New Ascorbic Acid [Vitamin C] 1,000 mg PO DAILY #30 tablet Ondansetron Odt [Zofran Odt] 4 mg PO Q8HR PRN #60 tab PRN Reason: Nausea And Vomiting Aspirin EC [Ecotrin Low Dose] 81 mg PO DAILY #30 tablet. Melatonin 3 mg PO HS 30 Days #30 tablet polyethylene glycoL 3350 [Miralax] 17 gm PO DAILY #30 packet Metoclopramide HCl [Reglan] 10 mg PO Q6HR #90 tablet Acetaminophen Tab [Tylenol] 650 mg PO Q6H #60 tab Cholecalciferol [Vitamin D3 (25 Mcg = 1000 Iu)] 25 mcg PO DAILY 30 Days #30 tab Dexamethasone [Decadron] 6 mg PO DAILY #5 tablet Continue lisinopriL [Zestril] 20 mg PO BID Metoprolol Tartrate [Lopressor] 25 mg PO BID Discharge Medication List Metoprolol Tartrate [Lopressor] 25 mg PO BID 12/22/20 [History] lisinopriL [Zestril] 20 mg PO BID 12/22/20 [History] Acetaminophen Tab [Tylenol] 650 mg PO Q6H #60 tab 12/29/20 [Rx] Ascorbic Acid [Vitamin C] 1,000 mg PO DAILY #30 tablet 12/29/20 [Rx] Aspirin EC [Ecotrin Low Dose] 81 mg PO DAILY #30 tablet. 12/29/20 [Rx] Cholecalciferol [Vitamin D3 (25 Mcg = 1000 Iu)] 25 mcg PO DAILY 30 Days #30 tab 12/29/20 [Rx] Dexamethasone [Decadron] 6 mg PO DAILY #5 tablet 12/29/20 [Rx] Melatonin 3 mg PO HS 30 Days #30 tablet 12/29/20 [Rx] Metoclopramide HCl [Reglan] 10 mg PO Q6HR #90 tablet 12/29/20 [Rx] Ondansetron Odt [Zofran Odt] 4 mg PO Q8HR PRN #60 tab 12/29/20 [Rx] polyethylene glycoL 3350 [Miralax] 17 gm PO DAILY #30 packet 12/29/20 [Rx] Follow up Appointment(s)/Referral(s): Jaret Salomon MD [Primary Care Provider] - 1-2 days Discharge Disposition: TRANSFER TO SNF/ECF
[2020-12-29 14:44] VITALS: BP 151/80; PULSE 112; RESP 18; TEMP 97.7
--- NOTE | 2020-12-29 19:59 | PN ---
PROGRESS NOTE DATE OF SERVICE: 12/29/2020 REASON FOR FOLLOWUP: COVID-19 pneumonia. INTERVAL HISTORY: The patient is afebrile. The patient is breathing comfortably, currently on room air. The patient denies having any chest pain or shortness of breath. He did have some cough; no purulent secretion. No abdominal pain or diarrhea. Lower extremity weakness has improved. PHYSICAL EXAMINATION: Blood pressure 151/80 with a pulse of 112, temperature 97.7. He is 93% on room air. General description is a middle-aged male lying in bed in no distress. RESPIRATORY SYSTEM: Unlabored breathing. Clear to auscultation anteriorly. HEART: S1, S2. Regular rate and rhythm. ABDOMEN: Soft. No tenderness. EXTREMITIES: No edema of the feet. LABS: BUN of 36, creatinine 0.86. DIAGNOSTIC IMPRESSION AND PLAN: Patient with acute COVID-19 pneumonia in this patient who has shown overall clinical improvement. The patient has completed his remdesivir therapy, currently on Decadron, Lovenox, zinc and ascorbic acid; to continue along with respiratory support and monitor his clinical course closely. MMODL / IJN: [id number] /
--- NOTE | 2020-12-30 11:46 | P.PN ---
Subjective Progress Note Date: 12/29/20 Principal diagnosis: Acute covid 19 pneumonia Acute hypoxic respiratory failure symmetric neuropathy Bilateral symmetrical numbness of the extremities Hypertension hypertensive cardiovascular disease Likely baseline COPD 12/29/2020, patient seen eval examined during the rounds, patient has finished 5 courses of IVIG therapy, numbness in the upper extremity lower extremity has improved significantly respiratory status also improved, patient can be discharged from pulmonary standpoint on Decadron and anticoagulation with aspirin and follow up on outpatient basis 12/28/2020, patient seen eval examined during the rounds labs reviewed medications reviewed numbness in the extremity continued to improve one more day of IVIG therapies left, oxygen is tapered down to 2 L nasal cannula, n chest x- ray shows parenchymal changes and scattered bilateral interstitial infiltrate consistent with COVID-19 pneumonia 12/27/2020, patient seen eval examined during the rounds labs reviewed medications reviewed, patient is down to 2 L nasal cannula respiratory status continued to improve, patient is getting IVIG 2 day therapies left numbness in the extremity significantly improved patient is now having some sensation now 12/26/2020, patient seen eval examined during the rounds labs reviewed medications reviewed in respiratory status is stable on 3 drug oxygen continue to get an infusion therapy, post therapy likely will be placed in rehab, cough congestion shortness of breath improved patient remains on therapy for covert pneumonia 12/25/2020, patient seen eval examined during the rounds labs reviewed medications reviewed, patient is on IV IgG infusion, numbness slightly better remains on 3 L oxygen cough congestion shortness of breath stable, 12/24/2020, patient seen eval examined during the rounds status 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, patient is still have numbness in the extremities, overall remains stable however shortness of breath stable, patient is on therapy for Coreg 19 pneumonia along with supplemental oxygen, preliminary results of the spinal tap his bag patient has elevated total protein of 83 in the CSF, duplex ultrasound of the lower extremity negative for DVT, 12/23/2020, patient seen eval examined during the rounds labs reviewed medications reviewed care plan discussed, shortness of breath still there inte rmittent cough is present neurology is evaluating this patient suspecting Guillain-Mendez syndrome patients to get a spinal tap, however will caution attempt due to being on Lovenox need to stop 12 hour before, patient received a dose of IV REMdesivir 200 mg yesterday we'll continue it 100 mg IV for 4 more days This is a 55-year-old male with history of smoking 3 packs per day lately has however has been not smoking, patient came into the hospital due to numbness in all 4 extremity, patient was diagnosed as the cord 19 pneumonia about a week ago with symptoms onset, has been more short of breath lately, patient did present in the ER previously for monoclonal IV antibody therapy after that he started having numbness in his feet and arms came into the hospital for further evaluation and intervention and treatment Objective - Vital Signs Vital signs: Vital Signs Temp 97.7 F 12/29/20 14:00 Pulse 112 H 12/29/20 14:00 Resp 18 12/29/20 14:00 BP 151/80 12/29/20 14:00 Pulse Ox 93 L 12/29/20 14:00 Intake & Output 12/28/20 12/29/20 12/29/20 18:59 06:59 18:59 Intake Total 340 120 Output Total 150 700 Balance 190 -700 120 Weight 102.965 kg Intake: Oral 340 120 Output: Urine 150 700 Other: Voiding Method Urinal # Voids 1 2 # Bowel Movements 1 0 - Exam - Constitutional General appearance: disheveled, mild distress - EENT Eyes: PERRLA Ears: bilateral: normal - Neck Carotids: bilateral: upstroke normal - Respiratory Respiratory: bilateral: CTA - Cardiovascular Rhythm: regular Heart sounds: normal: S1, S2 - Gastrointestinal General gastrointestinal: normal bowel sounds, soft - Neurologic Neurologic: CNII-XII intact - Musculoskeletal Musculoskeletal: gait normal, generalized weakness, strength equal bilaterally - Psychiatric Psychiatric: A&O x's 3, appropriate affect, intact judgment & insight - Labs CBC & Chem 7: 12/28/20 08:55 12/29/20 09:21 Labs: Abnormal Lab Results - Last 24 Hours (Table) 12/28/20 12/29/20 Range/Units 08:55 09:21 Sodium 136 L (137-145) mmol/L BUN 36 H (9-20) mg/dL Ferritin 436.6 H (22.0-322.0) ng/mL ALT 108 H (4-49) U/L Total Protein 9.4 H (6.3-8.2) g/dL Microbiology - Last 24 Hours (Table) 12/22/20 11:17 Blood Culture - Final Blood No Growth after 144 hours 12/22/20 11:17 Blood Culture - Final Blood No Growth after 144 hours Assessment and Plan Assessment: Acute cvid 19 pneumonia Acute hypoxic respiratory failure 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
== END 2020-12-29 18:55 | DRG 177 ==
LOC: EC 10:12 → 4SSUR 14:07
PROVIDERS: ADMIT Family Medicine; ATTEND Family Medicine
PROC: XW033E5 Introduction of Remdesivir Anti-infective into Peripheral Vein, Percutaneous Approach, New Technology Group 5 (ICD-10-PCS; principal; 2020-12-22)
PROC: 3E0333Z Introduction of Anti-inflammatory into Peripheral Vein, Percutaneous Approach (ICD-10-PCS; 2020-12-22)
PROC: 009U3ZX Drainage of Spinal Canal, Percutaneous Approach, Diagnostic (ICD-10-PCS; 2020-12-23)
PROC: 30233S1 Transfusion of Nonautologous Globulin into Peripheral Vein, Percutaneous Approach (ICD-10-PCS; 2020-12-24)
DX: U07.1 COVID-19 (principal); J12.82 Pneumonia due to coronavirus disease 2019; J96.01 Acute respiratory failure with hypoxia; J44.0 Chronic obstructive pulmonary disease with (acute) lower respiratory infection; E87.1 Hypo-osmolality and hyponatremia; G61.0 Guillain-Barre syndrome; K56.7 Ileus, unspecified; I10 Essential (primary) hypertension; Z87.891 Personal history of nicotine dependence; R20.0 Anesthesia of skin; Z88.5 Allergy status to narcotic agent; R00.0 Tachycardia, unspecified; I25.10 Atherosclerotic heart disease of native coronary artery without angina pectoris; I11.9 Hypertensive heart disease without heart failure; Z82.49 Family history of ischemic heart disease and other diseases of the circulatory system; Z82.5 Family history of asthma and other chronic lower respiratory diseases; R73.03 Prediabetes; G62.9 Polyneuropathy, unspecified; E66.9 Obesity, unspecified; Z68.31 Body mass index [BMI] 31.0-31.9, adult; R91.1 Solitary pulmonary nodule; T38.0X5A Adverse effect of glucocorticoids and synthetic analogues, initial encounter; D72.829 Elevated white blood cell count, unspecified; G47.00 Insomnia, unspecified; Z79.899 Other long term (current) drug therapy
CPT/HCPCS: 36415; 70450; 71045; 71275; 74019; 80053; 80061; 82533; 82550; 82607; 82728; 82746; 82747; 82945; 83036; 83605; 83615; 83735; 83880; 84145; 84157; 84207; 84484; 85025; 85379; 85384; 85610; 85652; 85730; 86038; 86140; 86592; 87040; 87070; 87205; 87635; 89050; 93005; 93306; 93970; 94760; 96360; 99285

== ENCOUNTER → 2021-10-25 | Outpatient (CLI) | payer BC | END | disposition home or self-care (01) | LOC: LABWHC1 10:47 | PROVIDERS: ATTEND Family Medicine | DX: I10 Essential (primary) hypertension (principal); I49.1 Atrial premature depolarization | CPT/HCPCS: 36415; 93005 ==

== ENCOUNTER → 2021-11-12 | Outpatient (CLI) | payer BC ==
--- NOTE | 2021-11-12 11:13 | MR ---
EXAMINATION TYPE: MR brain wo/w con DATE OF EXAM: 11/12/2021 7:56 AM COMPARISON: NONE HISTORY: No prior, episodic hypertension with temporary loss of vision to right eye, possible CVA CONTRAST: Patient received 9ml mL intravenous Gadavist gadolinium contrast. Multiplanar and multispin-echo imaging of the brain was performed . Pre and post contrast enhanced i mages are obtained. The ventricles, basal cisterns and sulci overlying the cerebral convexities are mildly enlarged. There is evidence of mild periventricular white matter ischemic demyelination. Remote deep white matter insults are also noted. No acute edema is seen on diffusion weighted imaging. There is no evidence for midline shift or mass effect. Acute intracranial hemorrhage or extra-axial collection is not evident. No enhancing lesions are seen. The paranasal sinuses and mastoid air cells are well-aerated. IMPRESSION: Age-related atrophic and chronic small vessel ischemic change. No acute intracranial process at this time. No enhancing lesions are seen.
== END | disposition home or self-care (01) ==
LOC: RADMRIMAIN 07:01
PROVIDERS: ATTEND Family Medicine
DX: I67.82 Cerebral ischemia (principal); G31.89 Other specified degenerative diseases of nervous system
CPT/HCPCS: 70553

== ENCOUNTER → 2021-12-03 | Outpatient (CLI) | payer BC ==
--- NOTE | 2021-12-04 12:38 | ECHOF ---
Referral Reason:Z86.73 Personal hx of TIA MEASUREMENTS -------- HEIGHT: 180.3 cm WEIGHT: 105.7 kg BP: LAESV Index (A-L): 24.70 ml/m MV E Martin: 0.67 m/s MV DecT: 241 ms MV A Martin: 0.94 m/s MV E/A Ratio: 0.72 AV maxP.61 mmHg AV meanP.50 mmHg AR PHT: 387 ms RAP: 5.00 mmHg RVSP: 16.44 mmHg FINDINGS -------- This was a technically adequate study. Limited Study. Pt had full echo on 10/27/21 Contrast study was performed with 2 iv injections of 8 ccs of agitated normal saline, at rest, and wi th cough. Bubble study to rule out shunt. No shunt seen. The aortic valve is trileaflet and appears structurally normal. There is moderate aortic regurgitat ion. There is moderate aortic stenosis present. Peak/mean gradient across the Aortic Valve is 35. 61mmHg / 20.50mmHg. CONCLUSIONS -------- 1. Limited Study. Pt had full echo on 10/27/21 2. Contrast study was performed with 2 iv injections of 8 ccs of agitated normal saline, at rest, and with cough. 3. Bubble study to rule out shunt. No shunt seen. 4. The aortic valve is trileaflet and appears structurally normal. 5. There is moderate aortic regurgitation. 6. There is moderate aortic stenosis present. 7. Peak/mean gradient across the Aortic Valve is 35.61mmHg / 20.50mmHg. WARD HELPER: Roseline Davenport RD
== END | disposition home or self-care (01) ==
LOC: RADECHMAIN 14:38
PROVIDERS: ATTEND Psychiatry & Neurology Neurology
DX: I35.0 Nonrheumatic aortic (valve) stenosis (principal); Z86.73 Personal history of transient ischemic attack (TIA), and cerebral infarction without residual deficits
CPT/HCPCS: 93306

== ENCOUNTER → 2022-01-26 | Outpatient (CLI) | payer BC ==
[2022-01-26 22:50] LABS: HCT 44.5 % (39.6-50.0); HGB 14.3 g/dL (13.0-17.0); MCH 30.4 pg (27.0-32.0); MCHC 32.1 g/dL (32.0-37.0); MCV 94.5 fL (80.0-97.0); Mean Platelet Volume 9.4 fL (9.5-12.2); NRBC Per 100 WBC 0 /100 WBCS (0.0-0.0); Platelet Count 365 X 10*3/uL (140-440); RBC 4.71 X 10*6/uL (4.40-5.60); RDW 13.7 % (11.5-14.5); WBC 9.84 X 10*3/uL (4.50-10.00)
[2022-01-26 22:51] LABS: African American GFR (CKD) 106.3 (60.0-200.0); Anion Gap 9.8 mmol/L (10.00-18.00); Blood Urea Nitrogen 22.7 mg/dL (9.0-27.0); Carbon Dioxide 25.5 mmol/L (20.0-27.5); Non-African American GFR(CKD) 91.7 (60.0-200.0); Potassium 4.3 mmol/L (3.5-5.5)
== END | disposition home or self-care (01) ==
LOC: LABPAT 09:12
PROVIDERS: ATTEND Internal Medicine
DX: Z01.812 Encounter for preprocedural laboratory examination (principal); R07.9 Chest pain, unspecified
CPT/HCPCS: 80051; 82565; 84520; 85027

== ENCOUNTER 2022-06-05 07:46 | Day surgery (SDC) | payer BC ==
[2022-06-03 11:09] VITALS: BMI 30.7
[~2022-06-05 07:46] MED LIST: LACTATED RINGERS 1,000 ML IV SCH
[2022-06-05 08:17] VITALS: TEMP 97
[2022-06-05] MEDS ORDERED: PROPOFOL 10 MG/ML 20 ML VIAL IV ONE (08:26)
--- NOTE | 2022-06-05 08:26 | P.GSHP ---
History of Present Illness H&P Date: 06/05/22 CHIEF COMPLAINT: Colon screen HISTORY OF PRESENT ILLNESS: The patient is a 56-year-old male who presents for colon screen. Lower endoscopy was offered for further evaluation and management. PAST MEDICAL HISTORY: Please see list. PAST SURGICAL HISTORY: Please see list. MEDICATIONS: Please see list. ALLERGIES: Please see list. SOCIAL HISTORY: No illicit drug use FAMILY HISTORY: No reports of Crohn disease or ulcerative colitis. REVIEW OF ORGAN SYSTEMS: CONSTITUTIONAL: No reports of fevers or chills. PHYSICAL EXAM: VITAL SIGNS: Stable GENERAL: Well-developed pleasant in no acute distress. HEENT: No scleral icterus. Extraocular movements grossly intact. Moist buccal mucosa. NECK: Supple without lymphadenopathy. CHEST: Unlabored respirations. Equal bilateral excursions. CARDIOVASCULAR: Regular rate and rhythm. Distal 2+ pulses. ABDOMEN: Soft, nontender, nondistended. MUSCULOSKELETAL: No clubbing, cyanosis, or edema. ASSESSMENT: 1. Colon screen. PLAN: 1. Recommend proceeding with a lower endoscopy Past Medical History Past Medical History: CVA/TIA, Hypertension Additional Past Medical History / Comment(s): had TIA 2021-no residual(lost site rt eye less than a minute),hx states had guillian barre syndrome and was hospitalized during December-January of 2021 after having COVID-received monoclonal antibodies,Covid infection 2019 History of Any Multi-Drug Resistant Organisms: None Reported Past Surgical History: Heart Catheterization, Hernia Repair Additional Past Surgical History / Comment(s): eye surgery at age 1,inguinal hernia repair as an , umbilical hernia repair Past Anesthesia/Blood Transfusion Reactions: No Reported Reaction Smoking Status: Former smoker - Past Family History Mother Family Medical History: Cancer, COPD Father Family Medical History: Myocardial Infarction ([place]) Medications and Allergies Home Medications Medication Instructions Recorded Confirmed Type lisinopriL [Zestril] 20 mg PO BID 12/22/20 06/05/22 History Metoprolol Tartrate [Lopressor] 50 mg PO BID 10/26/21 06/05/22 History Clopidogrel [Plavix] 75 mg PO HS 01/29/22 06/05/22 History Super Beets Supp 1 dose PO DAILY 06/03/22 06/05/22 History amLODIPine [Norvasc] 10 mg PO QAM 06/03/22 06/05/22 History Allergies Allergy/AdvReac Type Severity Reaction Status Date / Time codeine Allergy Rash/Hives Verified 06/05/22 08:18 morphine Allergy Rash/Hives Verified 06/05/22 08:18 Surgical - Exam Vital Signs Temp Pulse Resp BP Pulse Ox 97.0 F L 67 16 175/83 96 06/05/22 08:16 06/05/22 08:16 06/05/22 08:16 06/05/22 08:16 06/05/22 08:16
--- NOTE | 2022-06-05 08:49 | P.PCN ---
Date of Procedure: 06/05/22 Description of Procedure: PREOPERATIVE DIAGNOSIS: Colonoscopy screening. POSTOPERATIVE DIAGNOSIS: Colonoscopy screening. Diverticulosis, scattered Internal and external hemorrhoids, grade 3 Anal fistula, chronic OPERATION: Colonoscopy to the cecum, ileocecal valve and appendiceal orifice. SURGEON: Corrine Junior MD. ANESTHESIA: MAC. INDICATIONS: The patient is a 56-year-old male who presents for his first colonoscopy screening. Benefits and risks were described and informed consent was obtained. DESCRIPTION OF PROCEDURE: The patient had undergone Sutab prep. The patient had been brought into the operating room and laid in the left lateral decubitus position. After adequate intravenous sedation, the rectum was examined with 2% lidocaine jelly. The prostate fossa was unremarkable External hemorrhoids were encountered. The rectal tone was within normal limits. Anorectal fistulas 2 without active drainage were identified. No lesions were palpated in the rectal vault. An Olympus colonoscope was advanced until the cecum, ileocecal valve and appendiceal orifice were clearly viewed. The prep was good. Scattered diverticulosis was encountered. No colonic polyps were found. No evidence of focal colitis was found. Retroflexion of the scope demonstrated grade 3 internal hemorrhoids without active bleeding or inflammation. The colon was desufflated. The patient had tolerated the procedure well. Withdrawal time was over 6 minutes. FINDINGS: Aronchick preparation quality scale 1+ (1-5) Anorectal fistulas 2 without active drainage Internal hemorrhoids, grade 3 External prolapsed hemorrhoids, grade 3 No arteriovenous malformations. No adenomatous polyps. No focal colitis. RECOMMENDATIONS: Lower endoscopy in 10 years, 2031 Plan - Discharge Summary Discharge Rx Participant: No New Discharge Prescriptions: Continue Clopidogrel [Plavix] 75 mg PO HS amLODIPine [Norvasc] 10 mg PO QAM lisinopriL [Zestril] 20 mg PO BID Metoprolol Tartrate [Lopressor] 50 mg PO BID Super Beets Supp 1 dose PO DAILY Discharge Medication List lisinopriL [Zestril] 20 mg PO BID 12/22/20 [History] Metoprolol Tartrate [Lopressor] 50 mg PO BID 10/26/21 [History] Clopidogrel [Plavix] 75 mg PO HS 01/29/22 [History] Super Beets Supp 1 dose PO DAILY 06/03/22 [History] amLODIPine [Norvasc] 10 mg PO QAM 06/03/22 [History] Follow up Appointment(s)/Referral(s): Corrine Junior MD [STAFF PHYSICIAN] - As Needed Patient Instructions/Handouts: Diverticulosis Diet (GEN), Diverticulosis (DC), Anorectal Abscess and Anal Fistula (ED) Activity/Diet/Wound Care/Special Instructions: Repeat colonoscopy in 5 years, 2031 Discharge Disposition: HOME SELF-CARE
[2022-06-05 09:06] VITALS: BP 144/75; PULSE 62; RESP 20
== END 2022-06-05 09:38 | disposition home or self-care (01) ==
LOC: ORWHC2ENDO 07:46
PROVIDERS: ATTEND Surgery Plastic and Reconstructive Surgery
DX: Z12.11 Encounter for screening for malignant neoplasm of colon (principal); I10 Essential (primary) hypertension; F12.90 Cannabis use, unspecified, uncomplicated; G62.9 Polyneuropathy, unspecified; Z86.16 Personal history of COVID-19; Z87.891 Personal history of nicotine dependence; Z86.73 Personal history of transient ischemic attack (TIA), and cerebral infarction without residual deficits; Z95.5 Presence of coronary angioplasty implant and graft; Z98.890 Other specified postprocedural states; Z82.5 Family history of asthma and other chronic lower respiratory diseases; Z80.9 Family history of malignant neoplasm, unspecified; Z82.49 Family history of ischemic heart disease and other diseases of the circulatory system; Z79.899 Other long term (current) drug therapy; Z88.5 Allergy status to narcotic agent; Z79.01 Long term (current) use of anticoagulants
CPT/HCPCS: 45378; J2704

== ENCOUNTER → 2023-02-05 | Outpatient (CLI) | payer BC ==
--- NOTE | 2023-02-06 08:52 | CT ---
EXAMINATION TYPE: CT chest w con CT DLP: 527.4 mGycm, Automated exposure control for dose reduction was used. DATE OF EXAM: 02/05/2023 7:23 PM COMPARISON: CT 12/22/2020 CLINICAL INDICATION:Male, 57 years old with history of R06.09; , Lung nodule found on prior CT x 2-3 years ago post covid TECHNIQUE: Multiple axial images were obtained through the chest. Sagittal and coronal reformats were created for review. Contrast used:100 cc mL of Isovue 300 with IV Contrast Oral contrast used: none. FINDINGS: LUNGS/ PLEURA: Paraseptal emphysema changes worse in the lung apices. Right upper lateral subpleural nodule measuring 3 mm is unchanged from prior. Series 4 image 23. Pulmonary nodule in the left lower lobe is no longer visualized. No suspicious pulmonary nodules Streaky atelectasis predominantly in the lung bases. AIRWAY: Patent and unremarkable. HEART: Size within normal limits. Consultations of the aortic valve leaflets. MEDIASTINUM: No gross evidence of adenopathy. VASCULATURE: No aortic aneurysm. Mild scattered atherosclerosis. No evidence for filling defect with in the central pulmonary arterial vascular. MUSCULOSKELETAL: No acute osseous abnormalities SOFT TISSUES/LYMPH NODES: Unremarkable. LOWER NECK: No significant findings. UPPER ABDOMEN: Probable hepatic cysts. IMPRESSION: 1. Stable right upper lobe lateral pulmonary nodule measuring 3 mm. The left lower lobe pulmonary no dule seen on prior is not visualized on today's exam. 2. Mild emphysema changes. 3. Aortic valve cusps calcifications.
== END | disposition home or self-care (01) ==
LOC: RADCTMAIN 18:40
PROVIDERS: ATTEND Internal Medicine Critical Care Medicine
DX: J43.9 Emphysema, unspecified (principal); R91.8 Other nonspecific abnormal finding of lung field; Z86.16 Personal history of COVID-19
CPT/HCPCS: 71260; Q9967